=== PATIENT | female | born 1975 | race Caucasian/White ===

== ENCOUNTER → 2019-02-28 10:26 | Outpatient (BNVA) | payer MEDICAID, SELFPAY | PROVIDERS: Family Provider Family Medicine; PCP Family Medicine; Referring Provider Family Medicine; Visit Provider Internal Medicine Rheumatology | DX: M79.10 Myalgia, unspecified site (principal); M19.90 Unspecified osteoarthritis, unspecified site; Z11.59 Encounter for screening for other viral diseases | CPT/HCPCS: 36415; 82085; 86480; 99204 ==

== ENCOUNTER 2019-02-28 15:09 | Outpatient (CLI) | payer MEDICAID, SELFPAY ==
--- NOTE | 2019-02-28 15:26 | XR_ITS ---
WS: [id number] LEFT FOOT: 3 VIEW(S) TECHNIQUE: PA, oblique and lateral. HISTORY: inflammatory arthritis COMPARISON: None available. No acute fracture or dislocation. Normal tarsal/metatarsal alignment. No soft tissue abnormality or bone destruction. XR/XR foot LT min 3V* [id number] IMPRESSION: Normal LEFT foot.
--- NOTE | 2019-02-28 15:26 | XR_ITS ---
WS: [id number] LEFT HAND: 3 VIEW(S) TECHNIQUE: PA, oblique and lateral. HISTORY: inflammatory arthritis COMPARISON: None available. No acute fracture or dislocation. No soft tissue or bone abnormality. XR/XR hand LT min 3V* [id number] IMPRESSION: Normal LEFT hand.
--- NOTE | 2019-02-28 15:26 | XR_ITS ---
WS: [id number] RIGHT HAND: 3 VIEW(S) TECHNIQUE: PA, oblique and lateral. HISTORY: inflammatory arthritis COMPARISON: 07/20/2018 No acute fracture or dislocation. No soft tissue or bone abnormality. No erosions or soft tissue edema. XR/XR hand RT min 3V* [id number] IMPRESSION: Normal RIGHT hand.
--- NOTE | 2019-02-28 15:26 | XR_ITS ---
WS: [id number] CHEST 2 VIEWS HISTORY: inflammatory arthritis COMPARISON: None available. Lungs: Clear with no abnormality. No pleural effusion or pneumothorax. A few scattered benign-appeari ng calcifications from prior granulomatous disease. Cardiac size: Normal. Mediastinum/Aorta: Normal mediastinum. Bones: Normal. Small hiatal hernia. XR/XR chest 2V* [id number] IMPRESSION: Stable chest with no acute cardiopulmonary disease.
--- NOTE | 2019-02-28 15:26 | XR_ITS ---
WS: [id number] RIGHT FOOT: 3 VIEW(S) TECHNIQUE: PA, oblique and lateral. HISTORY: inflammatory arthritis COMPARISON: None available. No acute fracture or dislocation. Normal tarsal/metatarsal alignment. No soft tissue abnormality or bone destruction. XR/XR foot RT min 3V* [id number] IMPRESSION: Normal RIGHT foot.
== END 2019-02-28 15:10 | disposition home or self-care (01) ==
LOC: RADWPI 15:15
PROVIDERS: Family Provider Family Medicine; PCP Family Medicine; Referring Provider Family Medicine; Visit Provider Internal Medicine Rheumatology
DX: M19.90 Unspecified osteoarthritis, unspecified site (principal)
CPT/HCPCS: 71046; 73130; 73630; 82306; 82550; 85651; 86140; 86431; 86704; 86803; 87340

== ENCOUNTER → 2019-03-16 10:54 | Outpatient (BNVA) | payer MEDICAID, OTHER, SELFPAY | PROVIDERS: Family Provider Family Medicine; PCP Family Medicine; Visit Provider Internal Medicine Rheumatology | DX: M79.7 Fibromyalgia (principal); M54.2 Cervicalgia; M85.80 Other specified disorders of bone density and structure, unspecified site; R79.89 Other specified abnormal findings of blood chemistry; M25.541 Pain in joints of right hand; M25.542 Pain in joints of left hand | CPT/HCPCS: 99214 ==

== ENCOUNTER 2019-03-16 13:48 | Outpatient (CLI) | payer MEDICAID, SELFPAY ==
--- NOTE | 2019-03-16 13:53 | XR_ITS ---
WS: [id number] CERVICAL SPINE 3 VIEWS HISTORY: neck pain COMPARISON: 03/30/2013 Mild straightening of the normal cervical lordosis. Disc spaces and vertebral body heights are normal . Lateral masses are aligned odontoid is intact. Disc spaces and vertebral body heights are well-maintained. Soft tissues are normal. XR/XR cervical spine 3V* [id number] IMPRESSION: Mild straightening of the normal cervical lordosis. May be due to spasm or posi tioning.
== END 2019-03-16 13:49 | disposition home or self-care (01) ==
LOC: RADWPI 13:52
PROVIDERS: Family Provider Family Medicine; PCP Family Medicine; Visit Provider Internal Medicine Rheumatology
DX: M54.2 Cervicalgia (principal)
CPT/HCPCS: 72040

== ENCOUNTER 2019-03-27 11:19 | Outpatient (CLI) | payer MEDICAID, SELFPAY ==
--- NOTE | 2019-03-27 11:51 | ECG_ITS ---
NAME OF STUDY: TREADMILL STRESS ECHOCARDIOGRAM INDICATION: Chest Pain, PROCEDURE: At the baseline, the patient's blood pressure was 151/91 with a heart rate of 78. The baseline electrocardiogram showed normal sinus rhythm with some nonspecific T wave changes in the inferior leads. The patient exercised for 7 minutes and 15 seconds on a standard Sal protocol. Patient attained a maximum heart rate of 161 beats per minute( 90 % of the maximum predicted heart rate) with a blood pressure at the peak exercise of 190/86 mm Hg. The EKG at the peak exercise revealed [address] depressions in lead II, III and aVF. Patient did not have any chest pain or any significant cardiac arrhythmias with the exercise During the recovery phase, there were no new changes. The EKG changes reverted back to the baseline Blood pressure at the end of the recovery phase was 169/87 mm Hg with a heart rate of 107 per minute. CONCLUSION: 1. Normal EKG response to treadmill exercise may suggest inferior wall ischemia 2. No exercise-induced chest pain or cardiac arrhythmia 3. Fair exercise tolerance, attained a maximum of 10.2 METs Electronically Signed On 03-27-2019 15:09:25 TRIAL ATTORNEY by Jessica Castillo M.D. [email or web address]
[2019-03-27 11:57] VITALS: BMI 21.2
--- NOTE | 2019-03-27 12:15 | USCV_ITS ---
Julia Beckford Age: 43 Gender: F : 1975 Exam Date: 03/27/2019 12:07 Ordering Phys: Jessica Castillo MD ([email or web address]) Technologist: Gavin Hogan Exam Location: [facility] [place] Indication: CHEST PAIN Rhythm: PACs Patient History: HTN, SMOKER, FAMILY H/O CAD Cardiac Medications: BETA MARKOS Medications in past 24 hours: NONE Contrast: Stress Results Protocol: Sal Total dose(mL): Exercise Duration (min:sec): 7:15 METS: 10.2 Resting HR: 88 Resting BP: 151 / 91 Peak HR: 161 Peak BP: 190 / 91 Max Predicted HR: 178 90 % Max Predicted HR Target HR: 151 Double Product: 64052 Stress Summary: PATIENT HAD SOB WHILE ON THE TREADMILL THAT RESOLVED QUICKLY DURING RECOVERY. BP Response: NORMAL Reason for Termination: TARGET HR REACHED Cardiac Symptoms: SOB ECG Analysis Resting ECG: Please see separate report Stress ECG: Please see separate report Arrhythmia: Please see separate report MEASUREMENTS (Male/Female) Normal Values FINDINGS At the baseline, the echocardiogram will normal LV size and ejection fraction. Segmental wall motion analysis revealed mild hypokinesia of the basal septal segment. With peak exercise, there was good augmentation of all the segments with no exercise-induced wall motion abnormalities. CONCLUSIONS Normal echocardiographic response to treadmill exercise No significant coronary ischemia, based on the above 5 Dr Jessica Castillo MD [facility] (Electronically Signed) Final Date: 27 March 2019 21:12 S
[2019-03-27 12:34] VITALS: BP 169/87; PULSE 102
== END 2019-03-27 11:20 | disposition home or self-care (01) ==
LOC: CDL 11:23
PROVIDERS: Family Provider Family Medicine; PCP Family Medicine; Visit Provider Internal Medicine Cardiovascular Disease
DX: R07.89 Other chest pain (principal); I10 Essential (primary) hypertension; F17.210 Nicotine dependence, cigarettes, uncomplicated
CPT/HCPCS: 93017; 93350

== ENCOUNTER 2019-07-13 08:02 | Emergency (ER) | payer MEDICAID, SELFPAY ==
[2019-07-13 08:16] VITALS: BP 165/94; PULSE 73; RESP 18; TEMP 37; O2SAT 99; BMI 21.6
--- NOTE | 2019-07-13 08:21 | XR_ITS ---
WS: [id number] PORTABLE CHEST HISTORY: Headache. COMPARISON: 02/28/2019 Lungs are clear and well expanded. No pleural effusion or pneumothorax. Cardiac size: Normal. Mediastinum/Aorta: Normal mediastinum. No osseous abnormality seen. XR/XR chest 1V portable [id number] IMPRESSION: Unremarkable portable chest.
--- NOTE | 2019-07-13 08:21 | CT_ITS ---
WS: [id number] CT HEAD NONCONTRAST HISTORY: Sudden onset of RIGHT hand and facial numbness with headache. TECHNIQUE: Contiguous axial imaging performed through the brain in 2.5 mm imaging. Bone and soft tiss ue windows. Sagittal and coronal reformats reviewed. All CT scans at [facility] use at le ast one of these dose optimization techniques: automated exposure control; mA and/or kV adjustment pe r patient size (includes targeted exams where dose is matched to clinical indication); or iterative r econstruction. DLP: 755.81 mGy.cm COMPARISON: None available. No acute intracranial hemorrhage, midline shift or mass effect. No atrophy or prior infarcts or herniation. Ventricles: Normal size with no hydrocephalus. Paranasal sinuses: As visualized are clear. Mastoid air cells: Well pneumatized. Calvarium and scalp: Skull is intact with no soft tissue edema or swelling. CT/CT head wo con* [id number] IMPRESSION: Negative head CT.
--- NOTE | 2019-07-13 08:27 | W.ED.NEUROSD ---
HPI - Neuro Symptoms/Deficit General: Chief Complaint: Neuro Symptoms/Deficit Stated Complaint: numbness arms and face Time Seen by Provider: 07/13/19 08:22 Source: patient Mode of arrival: ambulatory Limitations: no limitations History of Present Illness: HPI Narrative: 44-year-old female who states she woke up this morning at 3 AM with paresthesias to right side of face and arm. She states that she has had history of neck problems in the past. She states that her blood pressure was a little high this morning as well. She states that her symptoms have since resolved but she is worried about having a stroke. She denies any symptoms currently and denies any neck pain or headache. She denies any chest pain with the event. Associated symptoms: Deny chest pain, nausea or vomiting Review of Systems Const: Denies: fever(s), chills, body aches or change in appetite Eyes: Denies: blurry vision or eye discomfort ENMT: Denies: throat pain or dental pain Card: Denies: chest pain Resp: Denies: dyspnea GI: Denies: abdominal pain, nausea, vomiting or diarrhea : Denies: dysuria Musc: Denies: neck pain or back pain Skin/Breast: Denies: rash Neuro: Reports: numbness in extremities Psych: Denies: depression Buck/Lymph: Denies: easy bruising All/Imm: Denies: urticaria PFSH ED PFSH: Medical History Abnormal EKG The EKG from 01/31/1990 revealed a sinus rhythm with diffuse nonspecific ST changes, more so in the inferolateral leads. Possible old septal IN Arthralgia of both hands Arthralgia of cervical spine Atypical chest pain Encounter for screening for other viral diseases Fibromyalgia Hypertension Inflammatory arthritis Low vitamin D level Myalgia Surgical History S/P eye surgery Family History Other CAD (coronary artery disease) Clotting disorder Diabetes Family history of premature coronary artery disease Hyperlipidemia Hypertension Stroke Denies family history of Anesthesia complication Bleeding disorder Social History Smoking and tobacco status: current every day smoker Alcohol intake: never History of recent travel: No Physical Exam Const: COMMON NORMALS: no acute distress, patient oriented x3 and healthy appearing HENMT: COMMON NORMALS: normocephalic and atraumatic HEAD & SCALP: normocephalic and atraumatic Eye: COMMON NORMALS: Equal, round and reactive pupils present and EOMs intact bilaterally PUPIL: Yes Equal, round and reactive pupils present Neck/C-Spine: COMMON NORMALS: full ROM and supple Chest: COMMONS NORMALS: normal inspection of the chest and normal palpation of entire chest wall Resp: COMMON NORMALS: normal respiratory effort, No retractions, No use of accessory muscles and clear to auscultation bilaterally AUSCULTATION: clear to auscultation bilaterally Cardio: COMMON NORMALS: regular rate, regular rhythm and No murmurs present (Cardio) RATE: regular rate RHYTHM: regular rhythm GI: COMMON NORMALS: Normal to inspection, nondistended, normoactive bowel sounds present, Soft to palpation, non-tender and no masses PALPATION: Yes Soft to palpation Extremity: COMMON NORMALS: normal to inspection and full ROM Neuro: COMMON NORMALS: patient oriented x3, moves all extremities and no focal motor deficits Psych: COMMON NORMALS: mental status grossly normal, Normal thought process present and cooperative THOUGHT PROCESS: Normal thought process present Skin: COMMON NORMALS: no rashes or lesions noted and no wounds GENERAL SKIN EXAM: no rashes or lesions noted Course Vital Signs: Vital signs: Vital Signs Temperature 98.6 F 07/13/19 08:16 Pulse Rate 87 07/13/19 09:46 Respiratory Rate 16 07/13/19 09:46 Blood Pressure 130/87 07/13/19 09:46 Pulse Oximetry 100 07/13/19 09:46 MDM - Neuro Symptoms/Deficit MDM Narrative: Medical decision making narrative: Patient presents here with paresthesias that since resolved. Patient has no signs of his stroke here and CT head is normal. I informed her she needs to follow-up with her primary care doctor in 3 to 5 days return to the ER if worsening. Neuro exam here is benign. Lab Data: Labs: Lab Results 07/13/19 07/13/19 07/13/19 Range/Units 08:54 08:54 08:54 WBC 8.7 (4.0-10.0) 10^3/ uL RBC 3.87 L (4.1-5.3) 10^6/u L Hgb 12.3 (11.5-15.3) g/dL Hct 37.5 (37.0-47.0) % MCV 96.9 (81-99) fL MCH 31.8 (28.0-34.0) pg MCHC 32.8 (30.0-36.0) g/dL RDW 11.6 L (12.1-15.1) % Plt Count 248 (130-400) 10^3/c mm MPV 9.6 (7.4-10.4) fL Neut % (Auto) 54.7 % Lymph % (Auto) 36.1 % Mingo % (Auto) 5.4 % Eos % (Auto) 2.9 % Baso % (Auto) 0.6 % Neut # (Auto) 4.7 (1.8-7.7) 10^3/u L Lymph # (Auto) 3.1 (0.8-4.8) 10^3/u L Mingo # (Auto) 0.5 (0.2-0.9) 10^3/u L Eos # (Auto) 0.3 (0.0-0.8) 10^3/u L Baso # (Auto) 0.1 (0.0-0.1) 10^3/u L Nucleated RBC % (a uto) 0 % Nucleated RBCs # 0.0 /100WBC Sodium 143 (136-145) mmol/L Potassium 4.1 (3.5-5.1) mmol/L Chloride 103 (98-107) mmol/L Carbon Dioxide 29 (22-29) mmol/L Anion Gap 15.1 (5-19) BUN 8 (6-20) mg/dL Creatinine 0.8 (0.5-0.9) mg/dL GFR Calculation 78.3 L (90-130) mL/min Glucose 98 (65-115) mg/dL Calculated Osmolal ity 292 (285-295) mOsm/k g Calcium 9.6 (8.5-10.5) mg/dL Total Bilirubin 0.2 (0.15-1.2) mg/dL AST 16 (0-32) U/L ALT 10 (0-33) U/L Alkaline Phosphata se 63 (35-105) IU/L Troponin T Baselin e 6 (0-10) ng/mL Total Protein 7.1 (6.6-8.7) g/dL Albumin 5.0 (3.5-5.2) g/dL Globulin 2.1 (1.3-4.6) g/dL Imaging Data^: CXR: Radiologist's impression: Reason: shea [address] [place] [address] XRay Report Signed Patient: Julia Beckford Unit #: [id number] : 1975 Age/Sex: 44 / F ADM Date: 07/13/19 Loc: ER Room/Bed: Attending Dr: Ordering Provider/Ordering MD: Liza Silveira MD Date of Service: 07/13/19 Procedure(s): XR chest 1V portable [id number] Accession Number(s): [id number] Report Number: [id number] WS: [id number] PORTABLE CHEST HISTORY: Headache. COMPARISON: 02/28/2019 Lungs are clear and well expanded. No pleural effusion or pneumothorax. Cardiac size: Normal. Mediastinum/Aorta: Normal mediastinum. No osseous abnormality seen. XR/XR chest 1V portable [id number] IMPRESSION: Unremarkable portable chest. CT Head: Attestation: I personally reviewed and interpreted this imaging study as follows: Radiologist's impression: [address] [place] [address] CT Scan Report Signed Patient: Julia Beckford Unit #: [id number] : 1975 Age/Sex: 44 / F ADM Date: 07/13/19 Loc: ER Room/Bed: Attending Dr: Ordering Provider/Ordering MD: Liza Silveira MD Date of Service: 07/13/19 Procedure(s): CT head wo con* [id number] Accession Number(s): [id number] Report Number: [id number] WS: [id number] CT HEAD NONCONTRAST HISTORY: Sudden onset of RIGHT hand and facial numbness with headache. TECHNIQUE: Contiguous axial imaging performed through the brain in 2.5 mm imaging. Bone and soft tissue windows. Sagittal and coronal reformats reviewed. All CT scans at [facility] use at least one of these dose optimization techniques: automated exposure control; mA and/or kV adjustment per patient size (includes targeted exams where dose is matched to clinical indication); or iterative reconstruction. DLP: 755.81 mGy.cm COMPARISON: None available. No acute intracranial hemorrhage, midline shift or mass effect. No atrophy or prior infarcts or herniation. Ventricles: Normal size with no hydrocephalus. Paranasal sinuses: As visualized are clear. Mastoid air cells: Well pneumatized. Calvarium and scalp: Skull is intact with no soft tissue edema or swelling. CT/CT head wo con* [id number] IMPRESSION: Negative head CT. Discharge Plan Discharge Patient Disposition: Home, Self-Care Clinical Impression: Paresthesia Condition: Stable Prescriptions: No Action carvedilol 3.125 mg tablet 3.125 mg PO BID 30 Days Qty: 60 RF: 3 alprazolam 2 mg tablet 2 mg PO QID PRN (Reason: anxiety) RF: 0 hydrocodone-acetaminophen 10-325 mg tablet 1 tab PO Q4H PRN (Reason: Pain) RF: 0 duloxetine 60 mg capsule, delayed rel sprinkle 60 mg PO DAILY RF: 0 lidocaine 5 % adhesive patch,medicated 1 patch TOPICAL Q24H PRN (Reason: Pain) RF: 0 celecoxib [Celebrex] 200 mg capsule 200 mg PO BID 30 Days Qty: 60 RF: 1 cholecalciferol (vitamin D3) 2,000 unit tablet 2,000 unit PO .daily 90 Days Qty: 90 RF: 1 tizanidine 4 mg Capsule 4 mg PO TID PRN (Reason: Muscle Pain) RF: 0 Discharge Orders: Discharge Order (Routine); Ordered 07/13/19 Ordered By: Liza Silveira Referrals: Eleanor Lewis DO [Primary Care Provider] - 1-3 days Discharge Diet: Advance as tolerated Discharge Activity: Resume usual activity Patient Instructions: Paresthesia (ED) Discharge Date/Time: 07/13/19 09:47 Coding Level of Care Code ED Raisin Washer for Chg Fwd Exam Comprehensive
[2019-07-13 08:30] VITALS: BP 149/104; PULSE 64; RESP 18; O2SAT 99
[2019-07-13 09:02] LABS: Basophils # 0.1 10^3/uL (0.0-0.1); Basophils % 0.6 %; Eosinophils # 0.3 10^3/uL (0.0-0.8); Eosinophils % 2.9 %; Hematocrit 37.5 % (37.0-47.0); Hemoglobin 12.3 g/dL (11.5-15.3); Lymphocytes # 3.1 10^3/uL (0.8-4.8); Lymphocytes % 36.1 %; Mean Corpuscular HGB Conc 32.8 g/dL (30.0-36.0); Mean Corpuscular Hemoglobin 31.8 pg (28.0-34.0); Mean Corpuscular Volume 96.9 fL (81-99); Mean Platelet Volume 9.6 fL (7.4-10.4); Monocytes # 0.5 10^3/uL (0.2-0.9); Monocytes % 5.4 %; Neutrophils # 4.7 10^3/uL (1.8-7.7); Neutrophils % 54.7 %; Nucleated Red Blood Cells % 0 %; Platelet Count 248 10^3/cmm (130-400); Red Blood Count 3.87 10^6/uL (4.1-5.3); Red Cell Distribution Width 11.6 % (12.1-15.1); White Blood Count 8.7 10^3/uL (4.0-10.0)
[2019-07-13 09:23] LABS: Troponin(5th) Baseline 6 ng/mL (0-10)
[2019-07-13 09:24] LABS: Alanine Aminotransferase 10 U/L (0-33); Alkaline Phosphatase 63 IU/L (35-105); Anion Gap 15.1 (5-19); Aspartate Amino Transferase 16 U/L (0-32); Carbon Dioxide 29 mmol/L (22-29); Chloride 103 mmol/L (98-107); Globulin 2.1 g/dL (1.3-4.6); Glomerular Filtration Rate 78.3 mL/min (90-130); Glucose 98 mg/dL (65-115); Potassium 4.1 mmol/L (3.5-5.1); Sodium 143 mmol/L (136-145); Total Bilirubin 0.2 mg/dL (0.15-1.2); Total Protein 7.1 g/dL (6.6-8.7)
[2019-07-13 09:36] LABS: Blood Urea Nitrogen 8 mg/dL (6-20); Calcium 9.6 mg/dL (8.5-10.5); Osmolality Calculated 292 mOsm/kg (285-295)
[2019-07-13 09:46] VITALS: BP 130/87; PULSE 87; RESP 16; O2SAT 100
== END 2019-07-13 09:47 | disposition home or self-care (01) ==
PROVIDERS: Emergency Provider Emergency Medicine; PCP Family Medicine
DX: R20.2 Paresthesia of skin (principal); I10 Essential (primary) hypertension; F17.210 Nicotine dependence, cigarettes, uncomplicated
CPT/HCPCS: 12345; 36415; 70450; 71045; 80053; 84484; 85025; 96360; 99281; 99283

== ENCOUNTER 2019-11-06 15:00 | Outpatient (CLI) | payer MEDICAID, SELFPAY ==
--- NOTE | 2019-11-06 15:00 | USCV_ITS ---
Analy Julia Age: 44 Gender: F : 1975 Exam Date: 11/06/2019 15:16 Ordering Phys: Jessica Castillo MD ([email or web address]) Technologist: Carine Addison [place] [facility] [place]: HTN Risk Factors: Previous Vascular Surgery: Right Brachial BP: / Left Brachial BP: / Right Left Velocity (cm/s) Spectral Plaque Velocity (cm/s) Spectral Plaque Syst/Diast Broadening Syst/Diast Broadening 87.10/ 22.10 Prox CCA 45.30 / 12.60 79.40/ 20.90 Mid CCA 40.10 / 14.30 56.20/ 26.50 Distal CCA 46.40 / 17.80 58.40/ 33.10 Prox ICA 53.60 / 28.40 81.60/ 40.80 Mid ICA 49.00 / 26.10 62.50/ 28.80 Distal ICA 60.50 / 33.00 91.50 ECA 94.20 0.94 ICA/CCA 1.30 Antegrade Vertebral Antegrade 30.90/ 12.00 cm/s 38.20/ 14.70 cm/s Tri Subclavian Tri 61.90 113.6 0 FINDINGS Intimal thickening and minimal plaques at the bifurcations bilaterally. Mild degree in the common carotid arteries bilaterally. Antegrade flow in the vertebral arteries bilaterally. Normal Doppler flow velocities in the external carotid arteries bilaterally CONCLUSIONS Intimal thickening and minimal plaques at the bifurcations bilaterally. Intimal thickening in the common carotid arteries bilaterally No significant stenosis, based on the above findings Dr Jessica Castillo MD [facility] (Electronically Signed) Final Date: 06 November 2019 17:59 S
--- NOTE | 2020-02-22 | USCV_ITS ---
Analy Julia Age: 44 Gender: F : 1975 Exam Date: 02/22/2020 15:13 Ordering Phys: Jessica Castillo MD ([email or web address]) Technologist: Roberta Worthy Exam Location: [facility] – [place] Indication: Additional images of left side, bruit per Dr. Castillo Risk Factors: Previous Vascular Surgery: Right Brachial BP: / Left Brachial BP: / Right Left Velocity (cm/s) Spectral Plaque Velocity (cm/s) Spectral Plaque Syst/Diast Broadening Syst/Diast Broadening / Prox CCA 109.90/ 32.10 / Mid CCA 78.60 / 29.90 / Distal CCA 68.80 / 28.30 / Prox ICA 74.60 / 25.60 / Mid ICA 78.10 / 36.20 / Distal ICA 135.80/ 58.00 ECA 87.10 ICA/CCA 1.24 Vertebral Antegrade / cm/s 79.30/ 31.70 cm/s Subclavian Tri 255.4 0 FINDINGS Elevated velocity in the distal ICA Normal intimal thickening in the common carotid artery on the left side. Elevated velocity in the left subclavian artery CONCLUSIONS 1. Elevated velocity in the distal left ICA, may suggest fibromuscular dysplasia 2. Elevated velocity in the left subclavian artery may suggest hemodynamically significant stenosis. Consider CTA, to better evaluate the proximal and distal segments of the aortic arch vessels Dr Jessica Castillo MD [facility] (Electronically Signed) Final Date: 22 February 2020 19:06 S
== END 2019-11-06 15:01 | disposition home or self-care (01) ==
LOC: RAD 15:26
PROVIDERS: PCP Family Medicine; Visit Provider Internal Medicine Cardiovascular Disease
DX: I65.23 Occlusion and stenosis of bilateral carotid arteries (principal); I10 Essential (primary) hypertension
CPT/HCPCS: 93880

== ENCOUNTER 2020-01-10 12:59 | Outpatient (CLI) | payer MEDICAID, SELFPAY ==
--- NOTE | 2020-01-10 13:20 | CT_ITS ---
WS: [id number] CT ABDOMEN PELVIS TECHNIQUE: Contrast-enhanced CT of the abdomen and pelvis with coronal and sagittal reformatted image s. CLINICAL INFORMATION: GENERALIZED ABDOMINAL PAIN, GRANULOMATOUS DISEASE COMPARISON: None. DLP: 833.[address] scans at [facility] use at least one of these dose optimization techniques: automat ed exposure control; mA and/or kV adjustment per patient size (includes targeted exams where dose is matched to clinical indication); or iterative reconstruction. FINDINGS: Diffuse fatty infiltration of the liver. Normal portal vein and splenic vein. Normal gallbladder. Nor mal spleen. Adrenal glands are normal. Normal renal parenchymal enhancement. No hydronephrosis. Lung bases are well aerated. Subsegmental atelectasis left lower lobe. Normal pancreas. Normal spleen. Nor mal caliber abdominal aorta. Urine distended bladder. Tiny fat-containing umbilical hernia. No evidence of small large bowel obstruction. No periaortic or retroperitoneal lymphadenopathy. No inguinal lymphadenopathy. No free fluid in the pelvis. Normal te mbar spine. CT/CT abdomen pelvis w con* [id number] IMPRESSION: 1. No acute findings in the abdomen or pelvis. 2. Mild diffuse fatty infiltration of the liver. 3. Normal renal parenchymal enhancement. No hydronephrosis. 4. No evidence of small or large bowel obstruction. Normal sigmoid colon. 5. No adenopathy in the abdomen or pelvis. 6. No other significant findings.
[2020-01-10] MEDS: iohexol 300 mg/mL 100 mL Btl IV (15:01)
== END 2020-01-10 13:00 | disposition home or self-care (01) ==
LOC: RADWPI 13:04
PROVIDERS: PCP Family Medicine; Visit Provider Family Medicine
DX: R10.84 Generalized abdominal pain (principal); D71 Functional disorders of polymorphonuclear neutrophils; K76.89 Other specified diseases of liver
CPT/HCPCS: 74177; Q9967

== ENCOUNTER 2020-02-07 13:07 | Outpatient (CLI) | payer MEDICAID, SELFPAY ==
--- NOTE | 2020-02-07 13:10 | CT_ITS ---
WS: [id number] CT CHEST TECHNIQUE: Contrast enhanced CT of the chest with coronal and sagittal reformatted images. CLINICAL INFORMATION: GRANULOMATOUS DISEASE COMPARISON: None. DLP: 569.[address] scans at [facility] use at least one of these dose optimization techniques: automat ed exposure control; mA and/or kV adjustment per patient size (includes targeted exams where dose is matched to clinical indication); or iterative reconstruction. FINDINGS: Both lungs are well aerated. No acute pulmonary infiltrates. No focal consolidation or pleural fluid. No mediastinal or hilar lymphadenopathy. No axillary lymphadenopathy. Normal thyroid. Normal caliber thoracic aorta. Proximal main pulmonary arteries are normal. Adrenal glands are normal. Normal GE junction. Normal thoracic spine. CT/CT chest w con* [id number] IMPRESSION: 1. No acute pulmonary infiltrates. No focal consolidation or pleural fluid. 2. No mediastinal or hilar lymphadenopathy. No axillary lymphadenopathy. 3. No other significant findings.
[2020-02-07] MEDS: iohexol 300 mg/mL 100 mL Btl IV (13:26)
== END 2020-02-07 13:08 | disposition home or self-care (01) ==
LOC: RADWPI 13:09
PROVIDERS: PCP Family Medicine; Visit Provider Family Medicine
DX: D71 Functional disorders of polymorphonuclear neutrophils (principal)
CPT/HCPCS: 71260; Q9967

== ENCOUNTER 2020-07-08 11:10 | Outpatient (CLI) | payer MEDICAID, SELFPAY ==
[2020-07-08 12:07] LABS: Basophils # 0.1 10^3/uL (0.0-0.1); Basophils % 0.7 %; Eosinophils # 0.1 10^3/uL (0.0-0.8); Eosinophils % 1.5 %; Hematocrit 36.8 % (37.0-47.0); Hemoglobin 12.1 g/dL (11.5-15.3); Lymphocytes # 3.1 10^3/uL (0.8-4.8); Lymphocytes % 40.9 %; Mean Corpuscular HGB Conc 32.9 g/dL (30.0-36.0); Mean Corpuscular Hemoglobin 31.4 pg (28.0-34.0); Mean Corpuscular Volume 95.6 fL (81-99); Mean Platelet Volume 9.6 fL (7.4-10.4); Monocytes # 0.4 10^3/uL (0.2-0.9); Monocytes % 5.1 %; Neutrophils # 3.87 10^3/uL (1.8-7.7); Neutrophils % 51.5 %; Nucleated Red Blood Cells % 0 %; Platelet Count 202 10^3/cmm (130-400); Red Blood Count 3.85 10^6/uL (4.1-5.3); Red Cell Distribution Width 11.2 % (12.1-15.1); White Blood Count 7.5 10^3/uL (4.0-10.0)
[2020-07-08 12:19] LABS: C Reactive Protein 0.7 mg/L (0.0-4.9)
[2020-07-08 12:48] LABS: Erythrocyte Sedimentation Rate 20 mm/hr (0-15)
[2020-07-09 11:37] LABS: Alpha 1 Antitrypsin 162 mg/dL (83-199)
[2020-07-09 12:13] LABS: Centromere B Antibody <1.0 NEG AI (<1.0 NEG)
[2020-07-10 13:07] LABS: Anti-Double Strand DNA AB 1 IU/mL; SS A Ro Sjogrens Antibody <1.0 NEG AI (<1.0 NEG); SS-B/LA IGG <1.0 NEG AI (<1.0 NEG); Sm/RNP Antibody <1.0 NEG AI (<1.0 NEG); Smith Antibody <1.0 NEG AI (<1.0 NEG)
[2020-07-10 15:23] LABS: Cyclic Citrullinated Peptide <16 UNITS
[2020-07-10 17:38] LABS: Alternaria Alternata (M6) Ige <0.10 kU/L; Alternaria Class 0; Bermuda Class 0; Bermuda Grass (G2) Ige <0.10 kU/L; Cat Dander (E1) Ige 0.38 kU/L; Cat Dander Class 1; Common Ragweed (Short) (W1) Ig <0.10 kU/L; D. Farinae Class 0; Dermatophagoides Class 0; Dermatophagoides Farinae (D2) <0.10 kU/L; Dermatophagoides Pteronyssinus <0.10 kU/L; Dog Dander (E5) Ige 0.86 kU/L; Dog Dander Class 2; Elm (T8) Ige <0.10 kU/L; Elm Class 0; English Plantain (W9) Ige <0.10 kU/L; English Plantain Class 0; House Dust (Greer) (H1) Ige 0.12 kU/L; House Dust Class 0/1; Immunoglobulin E 62 kU/L (<OR=114); Johnson Grass (G10) Ige <0.10 kU/L; Johnson Grass Cl 0; June Grass Class 0; June Grass(Kentucky Blue) (G8) <0.10 kU/L; Lamb'S Quarters (Goose Foot) <0.10 kU/L; Lamb'S Quarters Class 0; Maple (Box Elder) (T1) Ige <0.10 kU/L; Maple Class 0; Meadow Fescue (G4) Ige <0.10 kU/L; Meadow Fescue Class 0; Mucor Racemosus Class 0; Oak (T7) Ige <0.10 kU/L; Oak Class 0; Orchard Grass (Cocksfoot) (G3) <0.10 kU/L; Penicillium Class 0; Penicillium Notatum (M1) Ige <0.10 kU/L; Perennial Rye Grass (G5) Ige <0.10 kU/L; Perennial Rye Grass Class 0; Ragweeed Class 0; Rough Marsh Elder (W16) Ige <0.10 kU/L; Rough Marsh Elder Class 0; Sweet Vernal Class 0; Sweet Vernal Grass (G1) Ige <0.10 kU/L; Timothy Grass (G6) Ige <0.10 kU/L; Timothy Grass Class 0
[2020-07-11 18:03] LABS: Aspergillus Fumigatus, Igg Ab, 8.2 mg/L (<=102)
== END 2020-07-08 11:11 | disposition home or self-care (01) ==
PROVIDERS: PCP Family Medicine; Visit Provider Internal Medicine Pulmonary Disease
DX: J45.909 Unspecified asthma, uncomplicated (principal); M19.90 Unspecified osteoarthritis, unspecified site; I10 Essential (primary) hypertension; Z79.899 Other long term (current) drug therapy
CPT/HCPCS: 36415; 82103; 82785; 85025; 85651; 86003; 86140; 86225; 86235; 86431

== ENCOUNTER 2020-10-10 14:53 | Emergency (ER) | payer MEDICAID, SELFPAY ==
[2020-10-10 15:26] VITALS: BP 146/90; PULSE 74; RESP 16; TEMP 37.1; O2SAT 98; BMI 21.2
== END 2020-10-10 16:38 ==
LOC: ER 14:58
PROVIDERS: Emergency Provider Physician Assistant; PCP Family Medicine
DX: Z53.21 Procedure and treatment not carried out due to patient leaving prior to being seen by health care provider (principal)
CPT/HCPCS: 99281

== ENCOUNTER 2020-10-28 10:46 | Outpatient (CLI) | payer MEDICAID, SELFPAY ==
[2020-10-28 11:13] LABS: Basophils # 0.1 10^3/uL (0.0-0.1); Basophils % 0.6 %; Eosinophils # 0.2 10^3/uL (0.0-0.8); Eosinophils % 1.9 %; Hematocrit 38.5 % (37.0-47.0); Hemoglobin 12.6 g/dL (11.5-15.3); Lymphocytes # 3.2 10^3/uL (0.8-4.8); Lymphocytes % 40.3 %; Mean Corpuscular HGB Conc 32.7 g/dL (30.0-36.0); Mean Corpuscular Hemoglobin 31.7 pg (28.0-34.0); Mean Platelet Volume 9.6 fL (7.4-10.4); Monocytes # 0.5 10^3/uL (0.2-0.9); Monocytes % 5.7 %; Neutrophils # 4.08 10^3/uL (1.8-7.7); Neutrophils % 51.4 %; Nucleated Red Blood Cells % 0 %; Platelet Count 229 10^3/cmm (130-400); Red Blood Count 3.97 10^6/uL (4.1-5.3); Red Cell Distribution Width 11.1 % (12.1-15.1); White Blood Count 7.9 10^3/uL (4.0-10.0)
[2020-10-28 11:45] LABS: Alanine Aminotransferase 17 U/L (0-33); Albumin Level 4.5 g/dL (3.5-5.2); Alkaline Phosphatase 80 IU/L (35-105); Anion Gap 13.4 (5-19); Aspartate Amino Transferase 22 U/L (0-32); Blood Urea Nitrogen 6 mg/dL (6-20); Calcium 9.1 mg/dL (8.5-10.5); Carbon Dioxide 28 mmol/L (22-29); Chloride 101 mmol/L (98-107); Globulin 2.8 g/dL (1.3-4.6); Glomerular Filtration Rate 90.9 mL/min (90-130); Glucose 85 mg/dL (65-115); Osmolality Calculated 283 mOsm/kg (285-295); Potassium 4.4 mmol/L (3.5-5.1); Sodium 138 mmol/L (136-145); Total Bilirubin 0.3 mg/dL (0.15-1.2); Total Protein 7.3 g/dL (6.6-8.7)
[2020-10-28 11:56] LABS: Protein Urine Neg (Negative); Specific Gravity, Urine 1.005 (1.005-1.030); Urine Appearance SL Hazy (CLEAR); Urine Color Yellow (Yellow); pH Urine 7 (5-7)
[2020-10-28 11:57] LABS: Add Urine Culture? No; Amorphous Sediment Urine 1+ /hpf; Bacteria Urine TRACE /hpf; Bilirubin Urine Neg (Negative); Blood Urine Neg (Negative); Glucose Urine UA Norm (Normal); Ketones Urine Negative (Negative); Leukocyte Esterase Urine Negative (Negative); Nitrate Urine Negative (Negative); Urobilinogen Urine Norm (Negative)
[2020-10-28 12:39] LABS: Erythrocyte Sedimentation Rate 24 mm/hr (0-15)
== END 2020-10-28 10:47 | disposition home or self-care (01) ==
LOC: LAB 10:48
PROVIDERS: PCP Family Medicine; Visit Provider Specialist
DX: H93.19 Tinnitus, unspecified ear (principal); R42 Dizziness and giddiness
CPT/HCPCS: 36415; 80053; 81001; 84443; 85025; 85651

== ENCOUNTER 2020-11-19 11:20 | Outpatient (CLI) | payer MEDICAID, SELFPAY ==
--- NOTE | 2020-11-19 11:23 | MR_ITS ---
WS: [id number] MRI BRAIN WITH HIGH-RESOLUTION IMAGING THROUGH THE INTERNAL AUDITORY CANALS WITHOUT AND WITH CONTRAST HISTORY: TINNITUS UNSPEC EAR;DIZZINESS AND GIDDINESS COMPARISON: None available. TECHNIQUE: Multiplanar, multisequence imaging is performed through the brain. Additional 3 mm imaging performed in multiple planes through the internal auditory canal. Postcontrast imaging with 12 ml's of MultiHance. No acute intracranial hemorrhage, midline shift, edema or mass effect. No prior infarct or signal abnormalities. No significant atrophy. Ventricles and extra-axial spaces are normal. No inferior displacement of cerebellar tonsils. Clivus and pituitary gland are normal. Internal and external auditory canals: Unremarkable. Cranial nerves VII and VIII complexes: Unremarkable. No enhancement or mass. Cerebellopontine angles: Normal. Paranasal sinuses: Very mild mucoperiosteal thickening in the RIGHT frontal ethmoid recess. No air-fl uid levels. Mastoid air cells: Normal. Calvarium and scalp: Normal. Visualized alutiiq of Bee and dural venous sinuses demonstrate no abnormality. MR/MR iac's wo/w con* [id number] IMPRESSION: Normal MRI IACs.
[2020-11-19] MEDS: gadobenate dimeglumine 20 mL vial IV (12:44)
== END 2020-11-19 11:21 | disposition home or self-care (01) ==
LOC: RADSHAW 11:21
PROVIDERS: PCP Family Medicine; Visit Provider Specialist
DX: H93.19 Tinnitus, unspecified ear (principal); R42 Dizziness and giddiness
CPT/HCPCS: 70553; A9577

== ENCOUNTER 2021-01-21 10:34 | Outpatient (CLI) | payer MEDICAID, SELFPAY ==
--- NOTE | 2021-01-21 10:42 | XR_ITS ---
WS: [id number] LUMBAR SPINE TECHNIQUE: 3 views of the lumbar spine CLINICAL INFORMATION: CHRONIC MID LOW BACK PAIN, NECK PAIN COMPARISON: None. FINDINGS: Five [id number] lumbar vertebral bodies. Disc space heights are well preserved. No compression f ractures. No No spondylolisthesis. Visualized sacroiliac joints are normal. Mild facet arthropathy L5 -S1. Normal visualized soft tissues. Partially visualized bowel gas pattern is normal. XR/XR lumbar spine 2-3V* [id number] IMPRESSION: Normal lumbar spine.
--- NOTE | 2021-01-21 10:42 | XR_ITS ---
WS: [id number] THORACIC SPINE TECHNIQUE: 3 views of the thoracic spine CLINICAL INFORMATION: CHRONIC MID LOW BACK PAIN, NECK PAIN COMPARISON: None. FINDINGS: Normal thoracic alignment. Both lungs are well aerated. Mild spondylitic changes thoracic spine. No a cute compression fractures. XR/XR thoracic spine 3V* [id number] IMPRESSION: No acute thoracic spine findings.
--- NOTE | 2021-01-21 10:42 | XR_ITS ---
WS: [id number] CERVICAL SPINE TECHNIQUE: 3 views of the cervical spine CLINICAL INFORMATION: CHRONIC MID LOW BACK PAIN, NECK PAIN COMPARISON: March 16, 2019 FINDINGS: Straightening of the normal cervical lordosis. Normal C1 articulation. Mild cervical curve. Normal de ns. Normal lateral masses. Alignment is unchanged since 2019. XR/XR cervical spine 3V* [id number] IMPRESSION: Normal cervical spine
== END 2021-01-21 10:35 | disposition home or self-care (01) ==
PROVIDERS: PCP Family Medicine; Visit Provider Family Medicine
DX: M54.6 Pain in thoracic spine (principal); G89.29 Other chronic pain; M54.41 Lumbago with sciatica, right side; M54.42 Lumbago with sciatica, left side
CPT/HCPCS: 72040; 72072; 72100

== ENCOUNTER → 2021-03-27 11:09 | Outpatient (BNVA) | payer MEDICAID, SELFPAY | PROVIDERS: PCP Family Medicine; Visit Provider Internal Medicine Rheumatology | DX: M06.9 Rheumatoid arthritis, unspecified (principal); M79.7 Fibromyalgia; E55.9 Vitamin D deficiency, unspecified; R23.1 Pallor | CPT/HCPCS: 99214 ==

== ENCOUNTER 2021-07-16 15:35 | Outpatient (CLI) | payer MEDICAID, SELFPAY ==
--- NOTE | 2021-07-16 16:24 | XRR_ITS ---
PROCEDURE INFORMATION: Exam: XR Left Knee Exam date and time: 07/16/2021 4:26 PM Age: 46 years old Clinical indication: Pain; Knee; Bilateral; Additional info: Chronic pain of both knees TECHNIQUE: Imaging protocol: XR Left knee. Views: 3 views. COMPARISON: CR XR foot LT min 3V* [id number] 02/28/2019 3:31 PM FINDINGS: Bones/joints: Normal. Soft tissues: Normal. XR/XR knee LT 3V* [id number] IMPRESSION: No acute findings.
--- NOTE | 2021-07-16 16:24 | XRR_ITS ---
PROCEDURE INFORMATION: Exam: XR Right Knee Exam date and time: 07/16/2021 4:26 PM Age: 46 years old Clinical indication: Pain; Knee; Bilateral; Additional info: Chronic pain of both knees TECHNIQUE: Imaging protocol: XR Right knee. Views: 3 views. COMPARISON: CR XR foot RT min 3V* [id number] 02/28/2019 3:31 PM FINDINGS: Bones/joints: Normal. Soft tissues: Normal. XR/XR knee RT 3V* [id number] IMPRESSION: No acute findings.
--- NOTE | 2021-07-16 16:25 | XRR_ITS ---
PROCEDURE INFORMATION: Exam: XR Right Ankle Exam date and time: 07/16/2021 4:26 PM Age: 46 years old Clinical indication: Pain; Ankle; Bilateral; Additional info: Chronic pain of both ankles TECHNIQUE: Imaging protocol: XR Right ankle. Views: 3 or more views. COMPARISON: CR XR foot RT min 3V* [id number] 02/28/2019 3:31 PM FINDINGS: Bones/joints: Normal. Soft tissues: Normal. XR/XR ankle RT min 3V* [id number] IMPRESSION: No acute findings.
--- NOTE | 2021-07-16 16:25 | XRR_ITS ---
PROCEDURE INFORMATION: Exam: XR Left Ankle Exam date and time: 07/16/2021 4:26 PM Age: 46 years old Clinical indication: Pain; Ankle; Bilateral; Additional info: Chronic pain of both ankles TECHNIQUE: Imaging protocol: XR Left ankle. Views: 3 or more views. COMPARISON: CR XR foot LT min 3V* [id number] 02/28/2019 3:31 PM FINDINGS: Bones/joints: Small calcified heel spur. Soft tissues: Normal. XR/XR ankle LT min 3V* [id number] IMPRESSION: Small calcified heel spur.
[2021-07-16 17:21] LABS: Erythrocyte Sedimentation Rate 8 mm/hr (0-15)
== END 2021-07-16 15:36 | disposition home or self-care (01) ==
LOC: LAB 15:40
PROVIDERS: PCP Family Medicine; Visit Provider Internal Medicine Rheumatology
DX: M19.90 Unspecified osteoarthritis, unspecified site (principal); M79.7 Fibromyalgia
CPT/HCPCS: 73562; 73610; 85651; 86140

== ENCOUNTER → 2021-09-18 13:42 | Outpatient (BNVA) | payer MEDICAID, SELFPAY | PROVIDERS: PCP Family Medicine; Visit Provider Internal Medicine Pulmonary Disease | DX: J44.9 Chronic obstructive pulmonary disease, unspecified (principal); R06.02 Shortness of breath; M19.90 Unspecified osteoarthritis, unspecified site; Z91.09 Other allergy status, other than to drugs and biological substances; F17.210 Nicotine dependence, cigarettes, uncomplicated | CPT/HCPCS: 99214 ==

== ENCOUNTER → 2021-10-02 15:16 | Outpatient (BNVA) | payer MEDICAID, SELFPAY | PROVIDERS: PCP Family Medicine; Visit Provider Internal Medicine Rheumatology | DX: M19.90 Unspecified osteoarthritis, unspecified site (principal); Z79.899 Other long term (current) drug therapy; M79.7 Fibromyalgia; E55.9 Vitamin D deficiency, unspecified; R23.1 Pallor | CPT/HCPCS: 99214 ==

== ENCOUNTER → 2021-10-06 13:34 | Outpatient (BNVA) | payer MEDICAID, SELFPAY | PROVIDERS: PCP Family Medicine; Referring Provider Family Medicine; Visit Provider Podiatrist Foot & Ankle Surgery | DX: M54.16 Radiculopathy, lumbar region (principal); R60.9 Edema, unspecified | CPT/HCPCS: 99203 ==

== ENCOUNTER → 2021-10-06 13:39 | Outpatient (BNVA) | payer MEDICAID, SELFPAY | PROVIDERS: PCP Family Medicine; Referring Provider Family Medicine; Visit Provider Podiatrist Foot & Ankle Surgery | DX: M79.673 Pain in unspecified foot (principal); M17.0 Bilateral primary osteoarthritis of knee | CPT/HCPCS: 73560; 73565; 77077 ==

== ENCOUNTER → 2021-10-06 14:16 | Outpatient (BNVA) | payer MEDICAID, SELFPAY | PROVIDERS: PCP Family Medicine; Referring Provider Family Medicine; Visit Provider Student in an Organized Health Care Education/Training Program | DX: M25.561 Pain in right knee (principal); M25.562 Pain in left knee; G89.29 Other chronic pain; M79.7 Fibromyalgia | CPT/HCPCS: 99213 ==

== ENCOUNTER → 2021-11-11 12:57 | Outpatient (BNVA) | payer MEDICAID, SELFPAY | PROVIDERS: PCP Family Medicine; Referring Provider Family Medicine; Visit Provider Specialist | DX: G62.89 Other specified polyneuropathies (principal) | CPT/HCPCS: 95913 ==

== ENCOUNTER 2021-11-17 13:07 | Outpatient (CLI) | payer MEDICAID, SELFPAY ==
[2021-11-17 15:16] LABS: Basophils # 0.1 10^3/uL (0.0-0.1); Basophils % 0.6 %; Eosinophils # 0.1 10^3/uL (0.0-0.8); Eosinophils % 0.6 %; Hematocrit 38.3 % (37.0-47.0); Hemoglobin 12.4 g/dL (11.5-15.3); Lymphocytes # 3.7 10^3/uL (0.8-4.8); Lymphocytes % 20.7 %; Mean Corpuscular HGB Conc 32.4 g/dL (30.0-36.0); Mean Corpuscular Hemoglobin 32.3 pg (28.0-34.0); Mean Corpuscular Volume 99.7 fl (81-99); Mean Platelet Volume 10.2 fL (7.4-10.4); Monocytes # 0.9 10^3/uL (0.2-0.9); Monocytes % 4.9 %; Neutrophils # 12.88 10^3/uL (1.8-7.7); Neutrophils % 72.7 %; Nucleated Red Blood Cells % 0 %; Platelet Count 263 10^3/cmm (130-400); Red Blood Count 3.84 10^6/uL (4.1-5.3); Red Cell Distribution Width 11.8 % (12.1-15.1); White Blood Count 17.7 10^3/uL (4.0-10.0)
[2021-11-17 15:38] LABS: Alanine Aminotransferase 21 U/L (0-33); Albumin Level 4.1 g/dL (3.5-5.2); Alkaline Phosphatase 84 U/L (35-105); Aspartate Amino Transferase 23 U/L (0-32); C Reactive Protein 8.5 mg/L (0.0-4.9); Globulin 2.7 g/dL (1.3-4.6); Glomerular Filtration Rate 133.4 mL/min (90-130); Total Bilirubin 0.2 mg/dL (0.15-1.2); Total Protein 6.8 g/dL (6.6-8.7)
== END 2021-11-17 13:08 | disposition home or self-care (01) ==
LOC: LAB 13:10
PROVIDERS: PCP Family Medicine; Visit Provider Internal Medicine Rheumatology
DX: M19.90 Unspecified osteoarthritis, unspecified site (principal); Z79.899 Other long term (current) drug therapy
CPT/HCPCS: 80076; 82565; 85025; 86140

== ENCOUNTER → 2022-05-18 10:53 | Outpatient (BNVA) | payer MEDICAID, SELFPAY | PROVIDERS: PCP Family Medicine; Visit Provider Internal Medicine Rheumatology | DX: M79.7 Fibromyalgia (principal); Z79.899 Other long term (current) drug therapy; M19.90 Unspecified osteoarthritis, unspecified site; M06.041 Rheumatoid arthritis without rheumatoid factor, right hand; M06.042 Rheumatoid arthritis without rheumatoid factor, left hand | CPT/HCPCS: 99214 ==

== ENCOUNTER → 2022-05-19 15:45 | Outpatient (BNVA) | payer MEDICAID, SELFPAY | PROVIDERS: PCP Family Medicine; Visit Provider Nurse Practitioner Women's Health | DX: Z01.419 Encounter for gynecological examination (general) (routine) without abnormal findings (principal) | CPT/HCPCS: 87624 ==

== ENCOUNTER → 2022-06-19 10:08 | Outpatient (BNVA) | payer MEDICAID, SELFPAY | PROVIDERS: PCP Family Medicine; Visit Provider Obstetrics & Gynecology | DX: R14.0 Abdominal distension (gaseous) (principal) | CPT/HCPCS: 76830 ==

== ENCOUNTER 2022-06-30 12:20 | Outpatient (CLI) | payer MEDICAID, SELFPAY ==
[2022-06-30 13:31] LABS: Basophils # 0.1 10^3/uL (0.0-0.1); Basophils % 0.7 %; Eosinophils # 0.2 10^3/uL (0.0-0.8); Eosinophils % 1.7 %; Hematocrit 39.8 % (37.0-47.0); Hemoglobin 12.6 g/dL (11.5-15.3); Lymphocytes % 27.5 %; Mean Corpuscular HGB Conc 31.7 g/dL (30.0-36.0); Mean Corpuscular Hemoglobin 31.3 pg (28.0-34.0); Mean Platelet Volume 9.7 fL (7.4-10.4); Monocytes # 0.7 10^3/uL (0.2-0.9); Neutrophils # 6.85 10^3/uL (1.8-7.7); Neutrophils % 63.5 %; Nucleated Red Blood Cells % 0 %; Platelet Count 271 10^3/cmm (130-400); Red Blood Count 4.02 10^6/uL (4.1-5.3); Red Cell Distribution Width 11.9 % (12.1-15.1); White Blood Count 10.8 10^3/uL (4.0-10.0)
[2022-06-30 13:58] LABS: Alanine Aminotransferase 27 U/L (0-33); Albumin Level 4.4 g/dL (3.5-5.2); Alkaline Phosphatase 82 U/L (35-105); Aspartate Amino Transferase 19 U/L (0-32); C Reactive Protein 10.9 mg/L (0.0-4.9); Globulin 2.8 g/dL (1.3-4.6); Glomerular Filtration Rate 77.2 mL/min (90-130); Total Bilirubin 0.4 mg/dL (0.15-1.2); Total Protein 7.2 g/dL (6.6-8.7)
== END 2022-06-30 12:21 | disposition home or self-care (01) ==
LOC: LAB 12:24
PROVIDERS: PCP Family Medicine; Visit Provider Internal Medicine Rheumatology
DX: M19.90 Unspecified osteoarthritis, unspecified site (principal); Z79.899 Other long term (current) drug therapy
CPT/HCPCS: 80076; 82565; 85025; 86140

== ENCOUNTER → 2022-08-20 13:21 | Outpatient (BNVA) | payer MEDICAID, SELFPAY | PROVIDERS: PCP Family Medicine; Visit Provider Podiatrist Foot & Ankle Surgery | DX: R60.9 Edema, unspecified (principal); G60.9 Hereditary and idiopathic neuropathy, unspecified; M79.662 Pain in left lower leg; M79.661 Pain in right lower leg | CPT/HCPCS: 99213 ==

== ENCOUNTER → 2022-09-14 14:41 | Outpatient (BNVA) | payer MEDICAID, SELFPAY | PROVIDERS: PCP Family Medicine; Visit Provider Student in an Organized Health Care Education/Training Program | DX: M75.41 Impingement syndrome of right shoulder; M75.42 Impingement syndrome of left shoulder | CPT/HCPCS: 73030; 99213 ==

== ENCOUNTER 2022-09-24 13:41 | Outpatient (CLI) | payer MEDICAID, SELFPAY ==
[2022-09-24 15:18] LABS: Chol HDL Ratio 6.09 mg/dL (0.0-4.40); Cholesterol 280 mg/dL (0-200); Glomerular Filtration Rate 90.1 mL/min (90-130); HDL Cholesterol 46 mg/dL (60-100); LDL Cholesterol Calculated 183 mg/dL (50-129); LDL HDL Ratio 3.98 RATIO (0.00-3.22); Triglycerides 256 mg/dL (0-150)
== END 2022-09-24 13:42 | disposition home or self-care (01) ==
PROVIDERS: PCP Family Medicine; Visit Provider Psychiatry & Neurology Neurology
DX: G37.9 Demyelinating disease of central nervous system, unspecified (principal)
CPT/HCPCS: 36415; 80061; 82565

== ENCOUNTER → 2022-10-06 13:50 | Outpatient (BNVA) | payer MEDICAID, SELFPAY | PROVIDERS: PCP Family Medicine; Visit Provider Student in an Organized Health Care Education/Training Program | DX: M25.562 Pain in left knee; M25.561 Pain in right knee; M79.7 Fibromyalgia | CPT/HCPCS: 73560; 73565; 99213 ==

== ENCOUNTER 2022-10-23 15:16 | Outpatient (CLI) | payer MEDICAID, SELFPAY ==
[2022-10-23 15:46] LABS: Basophils % 0.1 %; Eosinophils % 0.1 %; Hematocrit 37.9 % (36-47); Lymphocytes # 1.5 10^3/uL (0.8-4.8); Lymphocytes % 11.1 %; Mean Corpuscular HGB Conc 32.5 g/dL (30-55); Mean Corpuscular Hemoglobin 31.5 pg (27-33); Mean Corpuscular Volume 97.2 fl (85-98); Mean Platelet Volume 10.2 fL (7.4-10.4); Monocytes # 0.5 10^3/uL (0.2-0.9); Monocytes % 3.5 %; Neutrophils # 11.48 10^3/uL (1.8-7.7); Neutrophils % 84.5 %; Nucleated Red Blood Cells % 0 %; Platelet Count 326 10^3/cmm (157-399); Red Cell Distribution Width 12.1 % (12.1-15.1); White Blood Count 13.56 10^3/uL (3.29-11.43)
[2022-10-23 16:23] LABS: Alanine Aminotransferase 18 U/L (0-33); Albumin Level 4.4 g/dL (3.5-5.2); Alkaline Phosphatase 86 U/L (35-105); Anion Gap 13.1 (5-19); Aspartate Amino Transferase 15 U/L (0-32); Blood Urea Nitrogen 15 mg/dL (6-20); Calcium 9.1 mg/dL (8.5-10.5); Carbon Dioxide 27 mmol/L (22-29); Chloride 101 mmol/L (98-107); Chol HDL Ratio 5.38 mg/dL (0.0-4.40); Cholesterol 210 mg/dL (0-200); Globulin 2.8 g/dL (1.3-4.6); Glomerular Filtration Rate 67.4 mL/min (90-130); Glucose 143 mg/dL (65-115); HDL Cholesterol 39 mg/dL (60-100); Osmolality Calculated 287 mOsm/kg (285-295); Potassium 4.1 mmol/L (3.5-5.1); Sodium 137 mmol/L (136-145); Thyroid Stimulating Hormone 0.11 uIU/mL (0.27-4.20); Total Bilirubin 0.3 mg/dL (0.15-1.2); Total Protein 7.2 g/dL (6.6-8.7); Triglycerides 530 mg/dL (0-150)
[2022-10-23 17:43] LABS: LDL Cholesterol Direct 91 mg/dL (0-100)
== END 2022-10-23 15:17 | disposition home or self-care (01) ==
PROVIDERS: PCP Family Medicine; Visit Provider Family Medicine
DX: I10 Essential (primary) hypertension (principal); Z79.899 Other long term (current) drug therapy
CPT/HCPCS: 36415; 80053; 80061; 83721; 84443; 85025

== ENCOUNTER 2022-11-04 14:47 | Outpatient (CLI) | payer MEDICAID, SELFPAY ==
[2022-11-04 16:18] LABS: Glomerular Filtration Rate 77.2 mL/min (90-130)
== END 2022-11-04 14:48 | disposition home or self-care (01) ==
LOC: LAB 14:50
PROVIDERS: PCP Family Medicine; Visit Provider Psychiatry & Neurology Neurology
DX: G37.9 Demyelinating disease of central nervous system, unspecified (principal)
CPT/HCPCS: 82565

== ENCOUNTER 2023-01-10 18:36 | Emergency (ER) | payer MEDICAID, SELFPAY ==
[2023-01-10 18:41] VITALS: BP 162/100; PULSE 98; TEMP 36.9; O2SAT 96; BMI 26.5
--- NOTE | 2023-01-10 20:41 | ED_ITS ---
HPI - Extremity Problem General: Chief complaint: Extremity Problem,Nontraumatic Stated complaint: swelling all over, pain Time Seen by Provider: 01/10/23 19:18 History of Present Illness: Patient is a 47-year-old female that presents to the emergency department with a variety of complaints. Initially she came in because she had some type of speech difficulty back on Thanksgiving along with numbness in her lips. During her long discussion patient noted that this happens quite frequently and has been worked up but providers are unsure why this occurs. Patient brought up concerns of swelling in bilateral lower extremities that she has had for some time but worse in the last 2 weeks. She has been recently treated twice for UTI She has been evaluated for cardiovascular disease and had an angiogram but no angioplasty was necessary. Patient has current recommendations of wearing stockings and elevating her lower extremities but has not been utilizing these recommendations Patient also has concerns about her cholesterol and triglycerides. She failed to follow-up as planned about a month ago with her primary care doctor. We are going to evaluate her today for bilateral lower extremity swelling. Associated symptoms: Deny chest pain, fever(s) or rash Review of Systems General: Reports: 10 or more systems reviewed and unremarkable except in HPI and below Const: Denies: fever(s), chills, change in appetite, change in weight, fatigue or malaise Eyes: Denies: change in vision, eye discomfort, eye discharge or eye redness ENMT: Denies: throat pain, enlarged tonsils, odynophagia, hoarseness, ear or mastoid pain, ear discharge, change in hearing, tinnitus, nasal discharge, nasal congestion, post nasal drip or sinus pain Card: Denies: chest pain, palpitations, irregular heart rhythm, edema, dyspnea on exertion, orthopnea or leg pain with exertion Resp: Denies: dyspnea, productive cough, non-productive cough, wheezing, stridor or chest congestion GI: Denies: abdominal pain, nausea, vomiting, dysphagia, diarrhea, constipation, bloating, GI cramping or hematochezia : Denies: flank pain, difficulty voiding, dysuria, urinary frequency, ur inary urgency, urinary hesitancy, oliguria or hematuria Musc: Denies: neck pain, back pain, extremity pain, joint pain, joint swelling, joint redness, joint warmth or muscle weakness Skin/Breast: Denies: rash, pruritus, erythema, photosensitivity or new lesions Neuro: Reports: Slurred speech present (Intermittently for years. ); Denies: headache(s), numbness in extremities, weakness in extremities, sensory changes, lack of coordination, difficulty walking, frequent falls, dizziness, confusion, difficulty communicating thoughts, seizure-like activity or involuntary movements Endo: Denies: polyuria, polydipsia or tired all the time Buck/Lymph: Denies: easy bruising or easy bleeding PFSH ED PFSH: Medical History Abnormal EKG The EKG from 01/31/1990 revealed a sinus rhythm with diffuse nonspecific ST changes, more so in the inferolateral leads. Possible old septal CT Arthralgia of both hands Arthralgia of cervical spine Atypical chest pain Carotid stenosis Edema Encounter for screening for other viral diseases Fibromyalgia High risk medication use Hypertension Immunization counseling Inflammatory arthritis Inflammatory arthritis Low vitamin D level Myalgia Near syncope Palpitations Recurrent UTI Seronegative rheumatoid arthritis of both hands Surgical History S/P eye surgery Family History Grandmother CAD (coronary artery disease) Cancer Diabetes Stroke Clotting disorder Family/Other CAD (coronary artery disease) Lung disease Stroke Father Cancer Dementia Sister CAD (coronary artery disease) Other Family history of premature coronary artery disease Hyperlipidemia Hypertension Denies family history of Chronic kidney disease (CKD) Suicide Anesthesia complication Bleeding disorder Social History Smoking and tobacco/nicotine status: current some day tobacco/nicotine user cigarettes Years cigarettes smoked: 14 Quit status (tobacco/nicotine): considering quitting Second hand smoke exposure: No Alcohol intake: never Substance/Drug Use: never Lives independently: Yes Household members: children Marital status: Legally Current occupational status: unemployed Pets and animals: Yes Do you think of yourself as: Straight/Heterosexual Current gender identity: Female Physical Exam Const: COMMON NORMALS: no acute distress, patient oriented x3 and alert GENERAL APPEARANCE: cooperative ORIENTATION/CONSCIOUSNESS: Yes awake, Yes oriented to person, Yes oriented to place and Yes oriented to time HENMT: COMMON NORMALS: normocephalic and atraumatic HEAD & SCALP: normo cephalic and atraumatic FACE & SINUS: normal facial exam MOUTH: Normal oral and palatal mucosa present THROAT: posterior oropharynx normal Eye: COMMON NORMALS: Equal, round and reactive pupils present, EOMs intact bilaterally, conjunctivae normal and no scleral icterus GENERAL EYE: appearance normal, both eyes and all related structures ALIGNMENT: Yes alignment normal PERIORBITAL: periorbital findings normal CONJUNCTIVA: Yes conjunctivae normal PUPIL: Yes Equal, round and reactive pupils present Neck/C-Spine: COMMON NORMALS: full ROM GENERAL: Yes normal visual inspection Lymph: LYMPHATIC: no lymphadenopathy noted Chest: COMMONS NORMALS: normal inspection of the chest Breast/axilla inspection: Yes no chest deformity, asymmetry, normal contours, no nodules, masses, tenderness Resp: COMMON NORMALS: normal respiratory effort, No retractions, No use of accessory muscles and clear to auscultation bilaterally EFFORT & INSPECTION: Yes able to speak in complete sentences and Yes symmetric chest movement AUSCULTATION: clear to auscultation bilaterally Cardio: COMMON NORMALS: regular rate, regular rhythm and Peripheral pulses 2+ throughout RATE: regular rate RHYTHM: regular rhythm PERIPHERAL PULSES: Peripheral pulses 2+ throughout GI: COMMON NORMALS: Normal to inspection, nondistended, normoactive bowel willian nds present, Soft to palpation, non-tender and No hepatosplenomegaly present INSPECTION: Yes normal to inspection AUSCULTATION: Yes normoactive bowel sounds PALPATION: Yes Soft to palpation and Yes No hepatosplenomegaly present RECTAL EXAM: deferred Extremity: COMMON NORMALS: normal to inspection GENERAL: Yes normal exam except as noted OTHER: Lower extremity edema below the level of the knee. 1+ Neuro: COMMON NORMALS: patient oriented x3 SENSORIUM/ORIENTATION: Yes alert, Yes oriented to person, Yes oriented to place and Yes oriented to time CRANIAL NERVES: Yes CN normal except as noted Psych: COMMON NORMALS: mental status grossly normal, Normal thought process present, cooperative, activity/motor behavior normal, denies homicidal ideation and denies suicidal ideation THOUGHT PROCESS: Normal thought process present Skin: COMMON NORMALS: no rashes or lesions noted, no wounds and turgor normal GENERAL SKIN EXAM: no rashes or lesions noted and turgor normal Course Vital Signs: Vital signs: Vital Signs Temperature 98.5 F 01/10/23 18:41 Pulse Rate 70 01/10/23 20:42 Respiratory Rate 22 H 11/26/23 20:42 Blood Pressure 152/100 01/10/23 20:42 Pulse Oximetry 92 01/10/23 20:42 Oxygen Delivery Me thod Room Air 01/10/23 20:42 MDM - Extremity (Nontraumatic) Medical Decision Making Patient was evaluated in the emergency department for bilateral lower extremity edema below the level of the knee. Patient denies any new pain. Does have chronic knee pain and foot pain. She attributes this pain being worse right now due to discontinuing her rheumatoid arthritis medication. Patient has been evaluated for lower extremity edema and it was recommended that she wear compression stockings and elevate her extremities while at rest. Patient has declined this recommendation. We obtained a CBC, chemistry panel, and a BNP to rule out any heart failure. Laboratory evaluation was unremarkable. Patient is going to be discharged home and is to follow-up with her primary care doctor regarding her other concerns. Patient should return to the emergency department for new, concerning, worsening symptoms Lab Data 01/10/23 20:30 01/10/23 20:30 Laboratory Results WBC 10.83 10^3/uL (3.29-11.43) 01/10/23 20:30 RBC 3.81 10^6/uL (3.85-5.65) L 01/10/23 20:30 Hgb 12.10 g/dL (11.27-16.99) 01/10/23 20:30 Hct 37.9 % (36-47) 01/10/23 20:30 MCV 99.5 fl (85-98) H 01/10/23 20: MCH 31.8 pg (27-33) 01/10/23 20:30 MCHC 31.9 g/dL (30-55) 01/10/23 20:30 RDW 12.5 % (12.1-15.1) 01/10/23 20:30 Plt Count 229 10^3/cmm (157-399) 01/10/23 20:30 MPV 10.1 fL (7.4-10.4) 01/10/23 20:30 Neut % (Auto) 80.8 % 01/10/23 20:30 Lymph % (Auto) 14.2 % 01/10/23 20:30 Butts % (Auto) 3.8 % 01/10/23 20:30 Eos % (Auto) 0.3 % 01/10/23 20:30 Baso % (Auto) 0.4 % 01/10/23 20:30 Neut # (Auto) 8.76 10^3/uL (1.8-7.7) H 01/10/23 20:30 Lymph # (Auto) 1.5 10^3/uL (0.8-4.8) 01/10/23 20:30 Butts # (Auto) 0.4 10^3/uL (0.2-0.9) 01/10/23 20:30 Eos # (Auto) 0.0 10^3/uL (0.0-0.8) 01/10/23 20: Baso # (Auto) 0.0 10^3/uL (0.0-0.1) 01/10/23 20:30 Nucleated RBC % (auto) 0 % 01/10/23 20: Nucleated RBCs # 0.0 /100WBC 01/10/23 20:30 Sodium 142 mmol/L (136-145) 01/10/23 20:30 Potassium 4.2 mmol/L (3.5-5.1) 01/10/23 20:30 Chloride 106 mmol/L (98-107) 01/10/23 20:30 Carbon Dioxide 27 mmol/L (22-29) 01/10/23 20:30 Anion Gap 13.2 (5-19) 01/10/23 20:30 BUN 7 mg/dL (6-20) 01/10/23 20:30 Creatinine 0.7 mg/dL (0.5-0.9) 01/10/23 20:30 GFR Calculation 90.1 mL/min (90-130) 01/10/23 20:30 Glucose 108 mg/dL (65-115) 01/10/23 20:30 Calculated Osmolality 293 mOsm/kg (285-295) 01/10/23 20:30 Calcium 9.5 mg/dL (8.5-10.5) 01/10/23 20:30 NT-Pro-B Natriuret Pep 259 pg/mL (0-125) H 01/10/23 20:30 No radiology studies performed this visit Discharge Plan Discharge Patient Disposition: Home Clinical Impression: Bilateral edema of lower extremity Condition: Stable Prescriptions: No Action hydrocodone-acetaminophen 10-325 mg tablet 1 tab PO Q4H PRN (Reason: Pain) lidocaine 5 % adhesive patch,medicated 1 patch TOPICAL Q24H PRN (Reason: Pain) duloxetine 60 mg capsule, delayed rel sprinkle 60 mg PO .every other day alprazolam 2 mg tablet 2 mg PO TID celecoxib [Celebrex] 200 mg capsule 200 mg PO DAILY Hold Instructions: Doctor's Order cyclobenzaprine 10 mg tablet 10 mg PO BID PRN (Reason: muscle spasm) cholecalciferol (vitamin D3) 2,000 unit tablet 2,000 unit PO .daily 90 Days Qty: 90 1RF vitamin B complex Tablet 1 tab PO DAILY ascorbic acid (vitamin C) 500 mg capsule PO carvedilol 3.125 mg tablet 3.125 mg PO DAILY PRN Rx Instructions: must administer with a meal/food - take if having elevated BP fentanyl 25 mcg/hr patch 72 hour 1 patch transdermal Q72H (DME) Compession Stockings See Rx Instructions .Route .MEDSUPPLY Qty: 1 0RF Rx Instructions: As directed compression stockings that reach the knees (DME) Compression Stockings See Rx Instructions .Route .MEDSUPPLY Qty: 1 0RF Rx Instructions: As directed prednisone 20 mg tablet 20 mg PO DAILY Qty: 15 0RF Rx Instructions: 60mg X3 days 40mg X2 days 20mg X 2days prednisone 10 mg tablet 10 mg PO DAILY Qty: 90 1RF leflunomide 20 mg tablet See Rx Instructions .ROUTE .COMPLEX Qty: 30 0RF Dose Instruction: TAKE ONE TABLET BY MOUTH DAILY Rx Instructions: TAKE ONE TABLET BY MOUTH DAILY Discharge Orders: Discharge ED (Routine); Ordered 01/10/23 [facility] Referrals: Eleanor Lewis DO [Primary Care Provider] - Discharge Diet: Advance as tolerated Discharge Activity: Resume usual activity Patient Instructions: Leg Edema (ED), Pain Management Activity Restrictions/Additional Instructions: Please wear your compression stockings and elevate your extremities as needed for the lower extremity edema. Please follow-up with your primary care doctor Return to the emergency department for new, concerning, worsening symptoms Coding Level of Care Code ED Reconstructive Dentist for Davis Blum
[2023-01-10 20:42] VITALS: BP 152/100; PULSE 70; RESP 22; O2SAT 92
[2023-01-10 20:42] LABS: Basophils % 0.4 %; Eosinophils % 0.3 %; Hematocrit 37.9 % (36-47); Lymphocytes # 1.5 10^3/uL (0.8-4.8); Lymphocytes % 14.2 %; Mean Corpuscular HGB Conc 31.9 g/dL (30-55); Mean Corpuscular Hemoglobin 31.8 pg (27-33); Mean Corpuscular Volume 99.5 fl (85-98); Mean Platelet Volume 10.1 fL (7.4-10.4); Monocytes # 0.4 10^3/uL (0.2-0.9); Monocytes % 3.8 %; Neutrophils # 8.76 10^3/uL (1.8-7.7); Neutrophils % 80.8 %; Nucleated Red Blood Cells % 0 %; Platelet Count 229 10^3/cmm (157-399); Red Blood Count 3.81 10^6/uL (3.85-5.65); Red Cell Distribution Width 12.5 % (12.1-15.1); White Blood Count 10.83 10^3/uL (3.29-11.43)
[2023-01-10 21:07] LABS: Anion Gap 13.2 (5-19); Blood Urea Nitrogen 7 mg/dL (6-20); Calcium 9.5 mg/dL (8.5-10.5); Carbon Dioxide 27 mmol/L (22-29); Chloride 106 mmol/L (98-107); Glomerular Filtration Rate 90.1 mL/min (90-130); Glucose 108 mg/dL (65-115); NT Pro B Type Natriuretic Pept 259 pg/mL (0-125); Osmolality Calculated 293 mOsm/kg (285-295); Potassium 4.2 mmol/L (3.5-5.1); Sodium 142 mmol/L (136-145)
== END 2023-01-10 21:46 | disposition home or self-care (01) ==
PROVIDERS: Emergency Provider Nurse Practitioner; PCP Family Medicine
DX: R60.0 Localized edema (principal); I10 Essential (primary) hypertension; F17.210 Nicotine dependence, cigarettes, uncomplicated
CPT/HCPCS: 36415; 80048; 83880; 85025; 99283

== ENCOUNTER 2023-02-14 19:02 | Emergency (ER) | payer MEDICAID, SELFPAY ==
--- NOTE | 2023-02-14 19:04 | XRR_ITS ---
PROCEDURE INFORMATION: Exam: XR Chest Exam date and time: 02/14/2023 7:26 PM Age: 47 years old Clinical indication: Angina pectoris; Patient HX: Chest pain TECHNIQUE: Imaging protocol: Radiologic exam of the chest. Views: 1 view. COMPARISON: CT chest w con* [id number] 02/07/2020 1:24 PM FINDINGS: Lungs: Unremarkable. No consolidation. Pleural spaces: Unremarkable. No pleural effusion. No pneumothorax. Heart/Mediastinum: Unremarkable. No cardiomegaly. Bones/joints: Unremarkable. XR/XR chest 1V portable [id number] IMPRESSION: No acute findings.
--- NOTE | 2023-02-14 19:04 | ECG_ITS ---
[facility] Test Date: 2023-02-14 Pat Name: Julia Beckford Department: Room: Gender: Female Dish Maker: : 1975 Requested By: Liza Silveira Order Number: [id number] Jasvir MD: Reyes Correa M.D. Measurements Intervals [place] Rate: 93 P: 61 OK: 142 QRS: 76 QRSD: 76 T: 26 QT: 367 QTc: 456 Interpretive Statements SINUS RHYTHM POSSIBLE RIGHT VENTRICULAR CONDUCTION DELAY [RSR (QR) IN V1/V2] MODERATE ST DEPRESSION [0.05+ mV ST DEPRESSION] Compared to ECG 01/31/2019 16:59:58 ST (T wave) deviation now present T-wave abnormality no longer present Electronically Signed On 02-15-2023 8:36:02 TUFTER HAND by Reyes Correa M.D. [id number]
[2023-02-14 19:15] VITALS: BP 108/76; PULSE 97; RESP 16; TEMP 36.7; O2SAT 95; BMI 26.5
[2023-02-14 19:56] LABS: Basophils % 0.4 %; Eosinophils # 0.1 10^3/uL (0.0-0.8); Eosinophils % 1.3 %; Hematocrit 38.1 % (36-47); Lymphocytes # 2.9 10^3/uL (0.8-4.8); Mean Corpuscular HGB Conc 31.2 g/dL (30-55); Mean Corpuscular Hemoglobin 32.1 pg (27-33); Mean Corpuscular Volume 102.7 fl (85-98); Monocytes # 0.7 10^3/uL (0.2-0.9); Monocytes % 6.7 %; Neutrophils # 6.75 10^3/uL (1.8-7.7); Nucleated Red Blood Cells % 0 %; Platelet Count 238 10^3/cmm (157-399); Red Blood Count 3.71 10^6/uL (3.85-5.65); Red Cell Distribution Width 11.6 % (12.1-15.1); White Blood Count 10.55 10^3/uL (3.29-11.43)
[2023-02-14 20:16] LABS: Troponin(5th) Baseline < 6 ng/L (0-10)
[2023-02-14 20:23] LABS: Alanine Aminotransferase 30 U/L (0-33); Alkaline Phosphatase 95 U/L (35-105); Anion Gap 12.7 (5-19); Aspartate Amino Transferase 24 U/L (0-32); Blood Urea Nitrogen 6 mg/dL (6-20); Calcium 9.6 mg/dL (8.5-10.5); Carbon Dioxide 29 mmol/L (22-29); Chloride 101 mmol/L (98-107); Globulin 2.4 g/dL (1.3-4.6); Glomerular Filtration Rate 90.1 mL/min (90-130); Glucose 119 mg/dL (65-115); Osmolality Calculated 287 mOsm/kg (285-295); Potassium 3.7 mmol/L (3.5-5.1); Sodium 139 mmol/L (136-145); Total Bilirubin 0.3 mg/dL (0.15-1.2); Total Protein 6.4 g/dL (6.6-8.7)
[2023-02-14 21:30] LABS: Troponin 5 2HR 6.22 ng/L (0-10); Troponin 5 2HR Delta 0.22001 ABS# (0-10)
--- NOTE | 2023-02-14 21:34 | W.ED.BACK ---
HPI - Back Pain/Injury General: Chief Complaint: Back Pain/Injury Stated Complaint: fall 2 weeks ago, back pain, chest heaviness Time Seen by Provider: 02/14/23 21:22 Source: patient Mode of arrival: ambulatory Limitations: no limitations History of Present Illness: 47-year-old female states she has been having chest heaviness for the last 2 weeks. States she has had multiple falls she is dealt with weakness for quite some time she had some back pain states since resolved. States that she just had a heaviness in her chest she denies any shortness of breath denies any cough denies any fevers. Associated symptoms: Deny abdominal pain, chills, fever(s), nausea or vomiting Review of Systems Const: Denies: fever(s) or chills ENMT: Denies: throat pain or dental pain Card: Reports: chest pain Resp: Denies: dyspnea GI: Denies: abdominal pain, nausea, vomiting or diarrhea Musc: Reports: back pain; Denies: neck pain Skin/Breast: Denies: rash Neuro: Denies: headache(s) PFSH ED PFSH: Medical History Immunization counseling Seronegative rheumatoid arthritis of both hands Recurrent UTI Edema High risk medication use Inflammatory arthritis Near syncope Palpitations Carotid stenosis Arthralgia of both hands Arthralgia of cervical spine Low vitamin D level Hypertension Fibromyalgia Abnormal EKG The EKG from 01/31/1990 revealed a sinus rhythm with diffuse nonspecific ST changes, more so in the inferolateral leads. Possible old septal ND Atypical chest pain Inflammatory arthritis Encounter for screening for other viral diseases Myalgia Surgical History S/P eye surgery Family History Grandmother CAD (coronary artery disease) Cancer Diabetes Stroke Clotting disorder Family/Other CAD (coronary artery disease) Lung disease Stroke Father Cancer Dementia Sister CAD (coronary artery disease) Other Family history of premature coronary artery disease Hyperlipidemia Hypertension Denies family history of Chronic kidney disease (CKD) Suicide Anesthesia complication Bleeding disorder Social History Smoking and tobacco/nicotine status: current some day tobacco/nicotine user cigarettes Years cigarettes smoked: 14 Quit status (tobacco/nicotine): considering quitting Second hand smoke exposure: No Alcohol intake: never Substance/Drug Use: never Lives independently: Yes Household members: children Marital status: Legally Current occupational status: unemployed Pets and animals: Yes Do you think of yourself as: Straight/Heterosexual Current gender identity: Female Physical Exam Const: COMMON NORMALS: no acute distress, patient oriented x3 and healthy appearing HENMT: COMMON NORMALS: normocephalic and atraumatic HEAD & SCALP: normocephalic and atraumatic Eye: COMMON NORMALS: Equal, round and reactive pupils present and EOMs intact bilaterally PUPIL: Yes Equal, round and reactive pupils present Neck/C-Spine: COMMON NORMALS: full ROM and supple Chest: COMMONS NORMALS: normal inspection of the chest and normal palpation of entire chest wall Resp: COMMON NORMALS: normal respiratory effort, No retractions, No use of accessory muscles and clear to auscultation bilaterally AUSCULTATION: clear to auscultation bilaterally Cardio: COMMON NORMALS: regular rate, regular rhythm and No murmurs present (Cardio) RATE: regular rate RHYTHM: regular rhythm GI: COMMON NORMALS: Normal to inspection, nondistended, normoactive bowel sounds present, Soft to palpation, non-tender and no masses PALPATION: Yes Soft to palpation Extremity: COMMON NORMALS: normal to inspection and full ROM Neuro: COMMON NORMALS: patient oriented x3, moves all extremities and no focal motor deficits Psych: COMMON NORMALS: mental status grossly normal, Normal thought process present and cooperative THOUGHT PROCESS: Normal thought process present Skin: COMMON NORMALS: no rashes or lesions noted and no wounds GENERAL SKIN EXAM: no rashes or lesions noted Course Vital Signs: Vital signs: Vital Signs Temperature 98.1 F 02/14/23 19:15 Pulse Rate 97 02/14/23 19:15 Respiratory Rate 14 02/14/23 21:47 Blood Pressure 112/71 02/14/23 21:47 Pulse Oximetry 95 02/14/23 19:15 Oxygen Delivery Me thod Room Air 02/14/23 19:15 MDM - Back Pain/Injury Medical Decision Making Patient presents here with chest pain that is atypical in nature EKG x-ray and troponins are all normal did examine her back she has no point tenderness she is well-appearing here she is stable for discharge she is to follow-up with her PCP and return if worsening. Medical Records I reviewed the patient's medical records. Labs I reviewed the patient's lab results. 02/14/23 19:38 02/14/23 19:38 Radiology Impressions Chest X-Ray 02/14/23 19:04 IMPRESSION: No acute findings. Laboratory Results WBC 10.55 10^3/uL (3.29-11.43) 02/14/23 19:38 RBC 3.71 10^6/uL (3.85-5.65) L 02/14/23 19:38 Hgb 11.90 g/dL (11.27-16.99) 02/14/23 19:38 Hct 38.1 % (36-47) 02/14/23 19:38 MCV 102.7 fl (85-98) H 02/14/23 19:38 MCH 32.1 pg (27-33) 02/14/23 19:38 MCHC 31.2 g/dL (30-55) 02/14/23 19:38 RDW 11.6 % (12.1-15.1) L 02/14/23 19:38 Plt Count 238 10^3/cmm (157-399) 02/14/23 19:38 MPV 10.0 fL (7.4-10.4) 02/14/23 19:38 Neut % (Auto) 64.0 % 02/14/23 19:38 Lymph % (Auto) 27.0 % 02/14/23 19:38 [place] % (Auto) 6.7 % 02/14/23 19:38 Eos % (Auto) 1.3 % 02/14/23 19:38 Baso % (Auto) 0.4 % 02/14/23 19:38 Neut # (Auto) 6.75 10^3/uL (1.8-7.7) 02/14/23 19:38 Lymph # (Auto) 2.9 10^3/uL (0.8-4.8) 02/14/23 19:38 [facility] # (Auto) 0.7 10^3/uL (0.2-0.9) 02/14/23 19:38 Eos # (Auto) 0.1 10^3/uL (0.0-0.8) 02/14/23 19:38 Baso # (Auto) 0.0 10^3/uL (0.0-0.1) 02/14/23 19:38 Nucleated RBC % (auto) 0 % 02/14/23 19:38 Nucleated RBCs # 0.0 /100WBC 02/14/23 19:38 Sodium 139 mmol/L (136-145) 02/14/23 19:38 Potassium 3.7 mmol/L (3.5-5.1) 02/14/23 19:38 Chloride 101 mmol/L (98-107) 02/14/23 19:38 Carbon Dioxide 29 mmol/L (22-29) 02/14/23 19:38 Anion Gap 12.7 (5-19) 02/14/23 19:38 BUN 6 mg/dL (6-20) 02/14/23 19:38 Creatinine 0.7 mg/dL (0.5-0.9) 02/14/23 19:38 GFR Calculation 90.1 mL/min (90-130) 02/14/23 19:38 Glucose 119 mg/dL (65-115) H 02/14/23 19:38 Calculated Osmolality 287 mOsm/kg (285-295) 02/14/23 19:38 Calcium 9.6 mg/dL (8.5-10.5) 02/14/23 19:38 Total Bilirubin 0.3 mg/dL (0.15-1.2) 02/14/23 19:38 AST 24 U/L (0-32) 02/14/23 19:38 ALT 30 U/L (0-33) 02/14/23 19:38 Alkaline Phosphatase 95 U/L (35-105) 02/14/23 19:38 Troponin T Baseline < 6 ng/L (0-10) 02/14/23 19:38 Troponin T 120 Minute 6.22 ng/L (0-10) 02/14/23 21:09 Delta Troponin T 0.05277 ABS# (0-10) 02/14/23 21:09 Total Protein 6.4 g/dL (6.6-8.7) L 02/14/23 19:38 Albumin 4.0 g/dL (3.5-5.2) 02/14/23 19:38 Globulin 2.4 g/dL (1.3-4.6) 02/14/23 19:38 All radiology interpretation(s) finalized by discharge Discharge Plan Discharge Patient Disposition: Home Clinical Impression: Chest pain Condition: Stable Prescriptions: No Action hydrocodone-acetaminophen 10-325 mg tablet 1 tab PO Q4H PRN (Reason: Pain) lidocaine 5 % adhesive patch,medicated 1 patch TOPICAL Q24H PRN (Reason: Pain) duloxetine 60 mg capsule, delayed rel sprinkle 60 mg PO .every other day alprazolam 2 mg tablet 2 mg PO TID celecoxib [Celebrex] 200 mg capsule 200 mg PO DAILY Hold Instructions: Doctor's Order cyclobenzaprine 10 mg tablet 10 mg PO BID PRN (Reason: muscle spasm) cholecalciferol (vitamin D3) 2,000 unit tablet 2,000 unit PO .daily 90 Days Qty: 90 1RF vitamin B complex Tablet 1 tab PO DAILY ascorbic acid (vitamin C) 500 mg capsule PO carvedilol 3.125 mg tablet 3.125 mg PO DAILY PRN Rx Instructions: must administer with a meal/food - take if having elevated BP fentanyl 25 mcg/hr patch 72 hour 1 patch transdermal Q72H (DME) Compession Stockings See Rx Instructions .Route .MEDSUPPLY Qty: 1 0RF Rx Instructions: As directed compression stockings that reach the knees (DME) Compression Stockings See Rx Instructions .Route .MEDSUPPLY Qty: 1 0RF Rx Instructions: As directed prednisone 20 mg tablet 20 mg PO DAILY Qty: 15 0RF Rx Instructions: 60mg X3 days 40mg X2 days 20mg X 2days prednisone 10 mg tablet 10 mg PO DAILY Qty: 90 1RF leflunomide 20 mg tablet See Rx Instructions .ROUTE .COMPLEX Qty: 30 0RF Dose Instruction: TAKE ONE TABLET BY MOUTH DAILY Rx Instructions: TAKE ONE TABLET BY MOUTH DAILY Discharge Orders: Discharge ED (Routine); Ordered 02/14/23 Ordered By: Liza Silveira Referrals: Eleanor Lewis DO [Primary Care Provider] - 1-3 days Discharge Diet: Advance as tolerated Discharge Activity: Resume usual activity Patient Instructions: Chest Pain (ED) Coding Level of Care Code ED Space Systems Operations Manager for Davis Blum
[2023-02-14 21:47] VITALS: BP 112/71; RESP 14
== END 2023-02-14 21:48 | disposition home or self-care (01) ==
PROVIDERS: Emergency Provider Emergency Medicine; PCP Family Medicine
DX: R07.9 Chest pain, unspecified (principal); F17.210 Nicotine dependence, cigarettes, uncomplicated; I10 Essential (primary) hypertension
CPT/HCPCS: 36415; 71045; 80053; 84484; 85025; 93005; 99285

== ENCOUNTER 2023-02-19 16:51 | Emergency (ER) | payer MEDICAID, SELFPAY ==
[2023-02-19 16:56] VITALS: BP 145/74; PULSE 92; RESP 14; O2SAT 98
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
[2023-02-19 19:00] VITALS: RESP 16; TEMP 36.8
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
[2023-02-19 20:37] VITALS: PULSE 89; O2SAT 96
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
[2023-02-19 21:03] VITALS: PULSE 75; O2SAT 99
== END 2023-02-19 21:10 | disposition home or self-care (01) ==
PROVIDERS: Emergency Provider Nurse Practitioner; PCP Family Medicine
DX: Z04.1 Encounter for examination and observation following transport accident (principal); M79.18 Myalgia, other site; F17.210 Nicotine dependence, cigarettes, uncomplicated; I10 Essential (primary) hypertension; V89.2XXA Person injured in unspecified motor-vehicle accident, traffic, initial encounter
CPT/HCPCS: 70450; 71045; 72125; 99284

== ENCOUNTER → 2023-03-23 14:29 | Outpatient (BNVA) | payer MEDICAID, SELFPAY | PROVIDERS: PCP Family Medicine; Visit Provider Physician Assistant | DX: M25.561 Pain in right knee (principal); M25.562 Pain in left knee | CPT/HCPCS: 73560; 73565; 99213 ==

== ENCOUNTER 2023-04-20 12:51 | Outpatient (CLI) | payer MEDICAID, SELFPAY ==
[2023-04-20 13:16] LABS: Basophils # 0.1 10^3/uL (0.0-0.1); Basophils % 1.1 %; Eosinophils # 0.2 10^3/uL (0.0-0.8); Eosinophils % 2.3 %; Hematocrit 37.2 % (36-47); Lymphocytes # 2.3 10^3/uL (0.8-4.8); Lymphocytes % 33.3 %; Mean Corpuscular HGB Conc 32.3 g/dL (30-55); Mean Corpuscular Hemoglobin 30.8 pg (27-33); Mean Corpuscular Volume 95.4 fl (85-98); Monocytes # 0.7 10^3/uL (0.2-0.9); Monocytes % 9.6 %; Neutrophils # 3.72 10^3/uL (1.8-7.7); Neutrophils % 53.6 %; Nucleated Red Blood Cells % 0 %; Platelet Count 221 10^3/cmm (157-399); Red Cell Distribution Width 11.5 % (12.1-15.1); White Blood Count 6.96 10^3/uL (3.29-11.43)
[2023-04-20 13:45] LABS: Alanine Aminotransferase 15 U/L (0-33); Albumin Level 3.8 g/dL (3.5-5.2); Alkaline Phosphatase 120 U/L (35-105); Anion Gap 15.1 (5-19); Aspartate Amino Transferase 20 U/L (0-32); Blood Urea Nitrogen 9 mg/dL (6-20); Carbon Dioxide 27 mmol/L (22-29); Chloride 103 mmol/L (98-107); Chol HDL Ratio 7.48 mg/dL (0.0-4.40); Cholesterol 247 mg/dL (0-200); Glomerular Filtration Rate 90.1 mL/min (90-130); Glucose 97 mg/dL (65-115); HDL Cholesterol 33 mg/dL (60-100); LDL Cholesterol Calculated 151 mg/dL (50-129); LDL HDL Ratio 4.58 RATIO (0.00-3.22); Osmolality Calculated 289 mOsm/kg (285-295); Potassium 5.1 mmol/L (3.5-5.1); Sodium 140 mmol/L (136-145); Total Bilirubin 0.4 mg/dL (0.15-1.2); Total Protein 6.8 g/dL (6.6-8.7); Triglycerides 314 mg/dL (0-150)
[2023-04-22 12:20] LABS: Quantiferon Mitogen 7.74 IU/mL; Quantiferon Nil 0.13 IU/mL; Quantiferon Plus TB1 0.02 IU/mL; Quantiferon Plus TB2 <0.00 IU/mL; Quantiferon TB Gold NEGATIVE (NEGATIVE)
== END 2023-04-20 12:52 | disposition home or self-care (01) ==
LOC: LAB 12:56
PROVIDERS: PCP Family Medicine; Visit Provider Family Medicine
DX: I10 Essential (primary) hypertension (principal); E78.2 Mixed hyperlipidemia; M19.90 Unspecified osteoarthritis, unspecified site
CPT/HCPCS: 36415; 80053; 80061; 84443; 85025; 86480

== ENCOUNTER 2023-05-28 15:13 | Outpatient (CLI) | payer MEDICAID, SELFPAY ==
--- NOTE | 2023-05-28 15:23 | XRR_ITS ---
PROCEDURE INFORMATION: Exam: XR Chest Exam date and time: 05/28/2023 3:41 PM Age: 48 years old Clinical indication: Pain; Chest pressure TECHNIQUE: Imaging protocol: Radiologic exam of the chest. Views: 2 views. COMPARISON: CR XR chest 1V portable [id number] 02/19/2023 7:44 PM FINDINGS: Lungs: Unremarkable. No consolidation or mass. Pleural spaces: Unremarkable. No pleural effusion. No pneumothorax. Heart/Mediastinum: Unremarkable. No cardiomegaly. Bones/joints: Unremarkable. XR/XR chest 2V* [id number] IMPRESSION: No acute findings.
--- NOTE | 2023-05-28 15:38 | XRR_ITS ---
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 Views: 2 or 3 views. COMPARISON: CR XR lumbar spine 2-3V* [id number] 01/21/2021 10:47 AM FINDINGS: Bones/joints: Normal. No acute fracture. Normal alignment. No significant arthritic change. Soft tissues: Unremarkable. XR/XR lumbar spine 2-3V* [id number] IMPRESSION: No acute findings.
--- NOTE | 2023-05-28 15:38 | XRR_ITS ---
PROCEDURE INFORMATION: Exam: XR Cervical Spine Exam date and time: 05/28/2023 3:41 PM Age: 48 years old Clinical indication: Neck pain; Additional info: Chronic neck pain TECHNIQUE: Imaging protocol: Radiologic exam of the cervical spine. Views: 2 or 3 views. COMPARISON: CT cervical spin wo con* [id number] 02/19/2023 5:28 PM FINDINGS: Bones/joints: Normal. No acute fracture. Normal alignment.No significant arthritic change. Soft tissues: Unremarkable. XR/XR cervical spine 3V* [id number] IMPRESSION: No acute findings.
--- NOTE | 2023-05-28 15:38 | XRR_ITS ---
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 Views: 3 views. COMPARISON: CR XR thoracic spine 3V* [id number] 01/21/2021 10:47 AM FINDINGS: Bones/joints: Normal. No acute fracture. Normal alignment. Soft tissues: Unremarkable. XR/XR thoracic spine 2V [id number] IMPRESSION: No acute findings.
== END 2023-05-28 15:14 | disposition home or self-care (01) ==
LOC: RAD 15:15
PROVIDERS: PCP Family Medicine; Visit Provider Family Medicine
DX: M54.41 Lumbago with sciatica, right side (principal); G89.29 Other chronic pain
CPT/HCPCS: 71046; 72040; 72070; 72100

== ENCOUNTER 2023-06-24 12:37 | Outpatient (CLI) | payer MEDICAID, SELFPAY ==
[2023-06-24 13:34] LABS: Alanine Aminotransferase 14 U/L (0-33); Albumin Level 4.2 g/dL (3.5-5.2); Alkaline Phosphatase 159 U/L (35-105); Anion Gap 15.2 (5-19); Aspartate Amino Transferase 19 U/L (0-32); Blood Urea Nitrogen 7 mg/dL (6-20); Calcium 9.6 mg/dL (8.5-10.5); Carbon Dioxide 26 mmol/L (22-29); Chloride 105 mmol/L (98-107); Creatine Phosphokinase 50 U/L (26-192); Globulin 3.2 g/dL (1.3-4.6); Glomerular Filtration Rate 107.2 mL/min (90-130); Glucose 88 mg/dL (65-115); Osmolality Calculated 291 mOsm/kg (285-295); Potassium 4.2 mmol/L (3.5-5.1); Sodium 142 mmol/L (136-145); Total Bilirubin 0.5 mg/dL (0.15-1.2); Total Protein 7.4 g/dL (6.6-8.7)
[2023-06-28 10:54] LABS: Quantiferon Mitogen 8.38 IU/mL; Quantiferon Nil 0.05 IU/mL; Quantiferon TB Gold NEGATIVE (NEGATIVE)
== END 2023-06-24 12:38 | disposition home or self-care (01) ==
LOC: LAB 12:40
PROVIDERS: PCP Family Medicine; Visit Provider Family Medicine
DX: M79.10 Myalgia, unspecified site (principal); M19.90 Unspecified osteoarthritis, unspecified site
CPT/HCPCS: 80053; 82550; 86480

== ENCOUNTER 2023-06-30 10:11 | Outpatient (CLI) | payer MEDICAID, SELFPAY ==
[2023-06-30 10:29] VITALS: PULSE 86; RESP 18; O2SAT 98
[2023-06-30] MEDS: albuterol 2.5 mg/3 mL Neb INHALATION (10:29)
[2023-06-30 10:34] VITALS: PULSE 92
== END 2023-06-30 10:12 | disposition home or self-care (01) ==
LOC: RT 10:13
PROVIDERS: PCP Family Medicine; Visit Provider Family Medicine
DX: R06.02 Shortness of breath (principal)
CPT/HCPCS: 94726; 94729; J7613

== ENCOUNTER 2023-07-16 16:44 | Outpatient (CLI) | payer MEDICAID, SELFPAY ==
[2023-07-16 17:21] LABS: Basophils # 0.1 10^3/uL (0.0-0.1); Basophils % 0.9 %; Eosinophils # 0.2 10^3/uL (0.0-0.8); Eosinophils % 3.3 %; Hematocrit 37.3 % (36-47); Lymphocytes # 2.7 10^3/uL (0.8-4.8); Lymphocytes % 46.2 %; Mean Corpuscular HGB Conc 32.2 g/dL (30-55); Mean Corpuscular Hemoglobin 30.9 pg (27-33); Mean Corpuscular Volume 96.1 fl (85-98); Mean Platelet Volume 10.5 fL (7.4-10.4); Monocytes # 0.5 10^3/uL (0.2-0.9); Monocytes % 7.9 %; Neutrophils # 2.38 10^3/uL (1.8-7.7); Neutrophils % 41.5 %; Nucleated Red Blood Cells % 0 %; Platelet Count 187 10^3/cmm (157-399); Red Blood Count 3.88 10^6/uL (3.85-5.65); Red Cell Distribution Width 12.6 % (12.1-15.1); White Blood Count 5.73 10^3/uL (3.29-11.43)
[2023-07-16 17:38] LABS: Alanine Aminotransferase 14 U/L (0-33); Albumin Level 4.2 g/dL (3.5-5.2); Alkaline Phosphatase 128 U/L (35-105); Aspartate Amino Transferase 17 U/L (0-32); C Reactive Protein 4.7 mg/L (0.0-4.9); Globulin 2.9 g/dL (1.3-4.6); Glomerular Filtration Rate 89.7 mL/min (90-130); Total Bilirubin 0.3 mg/dL (0.15-1.2); Total Protein 7.1 g/dL (6.6-8.7)
[2023-07-19 11:24] LABS: Copper Level 176 mcg/dL (70-175)
[2023-07-22 20:34] LABS: Vitamin K 347 pg/mL (130-1500)
== END 2023-07-16 16:45 | disposition home or self-care (01) ==
PROVIDERS: Internal Medicine Rheumatology; PCP Family Medicine; Visit Provider Family Medicine
DX: Z79.899 Other long term (current) drug therapy (principal); M06.041 Rheumatoid arthritis without rheumatoid factor, right hand; M06.042 Rheumatoid arthritis without rheumatoid factor, left hand; Z91.89 Other specified personal risk factors, not elsewhere classified; K90.89 Other intestinal malabsorption; E78.2 Mixed hyperlipidemia; M19.90 Unspecified osteoarthritis, unspecified site; I10 Essential (primary) hypertension
CPT/HCPCS: 36415; 80076; 82525; 82565; 83735; 84255; 84597; 85025; 86140

== ENCOUNTER 2023-09-03 15:36 | Outpatient (CLI) | payer MEDICAID, SELFPAY ==
[2023-09-03 16:29] LABS: Basophils # 0.1 10^3/uL (0.0-0.1); Basophils % 0.9 %; Eosinophils # 0.2 10^3/uL (0.0-0.8); Eosinophils % 1.9 %; Hematocrit 37.4 % (36-47); Lymphocytes # 2.6 10^3/uL (0.8-4.8); Lymphocytes % 29.1 %; Mean Corpuscular Hemoglobin 31.1 pg (27-33); Mean Corpuscular Volume 100.3 fl (85-98); Mean Platelet Volume 10.6 fL (7.4-10.4); Monocytes # 0.7 10^3/uL (0.2-0.9); Monocytes % 7.5 %; Neutrophils # 5.31 10^3/uL (1.8-7.7); Neutrophils % 60.4 %; Nucleated Red Blood Cells % 0 %; Platelet Count 247 10^3/cmm (157-399); Red Blood Count 3.73 10^6/uL (3.85-5.65); Red Cell Distribution Width 12.3 % (12.1-15.1)
[2023-09-06 12:20] LABS: Ceruloplasmin 34 mg/dL (14-48)
[2023-09-06 14:05] LABS: Cyclic Citrullinated Peptide <16 UNITS
== END 2023-09-03 15:37 | disposition home or self-care (01) ==
PROVIDERS: PCP Family Medicine; Visit Provider Family Medicine
DX: E78.2 Mixed hyperlipidemia (principal); Z91.89 Other specified personal risk factors, not elsewhere classified; K90.89 Other intestinal malabsorption; M19.90 Unspecified osteoarthritis, unspecified site; I10 Essential (primary) hypertension
CPT/HCPCS: 36415; 82139; 82390; 84075; 84080; 85025; 86200

== ENCOUNTER → 2023-10-29 11:02 | Outpatient (BNVA) | payer MEDICAID, SELFPAY | PROVIDERS: PCP Family Medicine; Visit Provider Student in an Organized Health Care Education/Training Program | DX: M79.642 Pain in left hand (principal); M79.641 Pain in right hand; M65.312 Trigger thumb, left thumb | CPT/HCPCS: 73130 ==

== ENCOUNTER → 2023-11-16 12:54 | Outpatient (BNVA) | payer OTHER, SELFPAY | PROVIDERS: PCP Family Medicine; Visit Provider Psychiatry & Neurology Psychiatry | DX: Z79.899 Other long term (current) drug therapy (principal) | CPT/HCPCS: 80061; 83036 ==

== ENCOUNTER → 2024-08-08 13:57 | Outpatient (BNVA) | payer MEDICAID, SELFPAY ==
[2023-11-25 11:45] VITALS: BP 161/92; BMI 19.7
== END ==
PROVIDERS: PCP Family Medicine; Visit Provider Physician Assistant
DX: G56.03 Carpal tunnel syndrome, bilateral upper limbs (principal)
CPT/HCPCS: 99213

== ENCOUNTER → 2024-08-09 15:04 | Outpatient (BNVA) | payer MEDICAID, SELFPAY ==
[2023-11-25 11:45] VITALS: BP 161/92; BMI 19.7
== END ==
PROVIDERS: PCP Family Medicine; Visit Provider Podiatrist Foot & Ankle Surgery
DX: M79.671 Pain in right foot (principal); M79.672 Pain in left foot; M72.2 Plantar fascial fibromatosis; M24.572 Contracture, left ankle; M24.571 Contracture, right ankle
CPT/HCPCS: 73630; 99213

== ENCOUNTER → 2024-08-16 14:08 | Outpatient (BNVA) | payer MEDICAID, SELFPAY ==
[2023-11-25 11:45] VITALS: BP 161/92; BMI 19.7
== END ==
PROVIDERS: PCP Family Medicine; Visit Provider Physician Assistant
DX: M25.561 Pain in right knee (principal); M25.562 Pain in left knee; M17.0 Bilateral primary osteoarthritis of knee
CPT/HCPCS: 73560; 73565; 99213

== ENCOUNTER → 2024-09-06 13:32 | Outpatient (BNVA) | payer MEDICAID, SELFPAY ==
[2023-11-25 11:45] VITALS: BP 161/92; BMI 19.7
== END ==
PROVIDERS: PCP Family Medicine; Visit Provider Physician Assistant
DX: M25.511 Pain in right shoulder (principal); M25.512 Pain in left shoulder; M72.2 Plantar fascial fibromatosis; M24.572 Contracture, left ankle; M24.571 Contracture, right ankle
CPT/HCPCS: 73030; 99213

== ENCOUNTER → 2024-10-26 16:11 | Outpatient (BNVA) | payer MEDICAID, SELFPAY ==
[2024-10-26 10:41] VITALS: BP 161/92; BMI 19.7
== END ==
PROVIDERS: PCP Family Medicine; Visit Provider Specialist
DX: G56.03 Carpal tunnel syndrome, bilateral upper limbs (principal)
CPT/HCPCS: 95911

== ENCOUNTER → 2024-10-31 14:29 | Outpatient (BNVA) | payer MEDICAID, SELFPAY ==
[2024-10-26 10:41] VITALS: BP 161/92; BMI 19.7
== END ==
PROVIDERS: PCP Family Medicine; Visit Provider Student in an Organized Health Care Education/Training Program
DX: M25.551 Pain in right hip (principal); M25.552 Pain in left hip; M54.50 Low back pain, unspecified
CPT/HCPCS: 73523; 99213

== ENCOUNTER → 2024-11-15 15:10 | Outpatient (BNVA) | payer MEDICAID, SELFPAY ==
[2024-10-26 10:41] VITALS: BP 161/92; BMI 19.7
== END ==
PROVIDERS: PCP Family Medicine; Visit Provider Podiatrist Foot & Ankle Surgery
DX: M72.2 Plantar fascial fibromatosis (principal); M24.572 Contracture, left ankle; M24.571 Contracture, right ankle
CPT/HCPCS: 99214

== ENCOUNTER → 2024-11-21 16:40 | Outpatient (BNVA) | payer MEDICAID, SELFPAY ==
[2024-10-26 10:41] VITALS: BP 161/92; BMI 19.7
== END ==
PROVIDERS: PCP Family Medicine; Visit Provider Student in an Organized Health Care Education/Training Program
DX: M06.4 Inflammatory polyarthropathy (principal)
CPT/HCPCS: 36415; 80053; 84550; 85025; 85651; 86140; 86200; 86225; 86235; 86431

== ENCOUNTER → 2024-12-07 14:14 | Outpatient (BNVA) | payer OTHER, SELFPAY ==
[2024-10-26 10:41] VITALS: BP 161/92; BMI 19.7
== END ==
PROVIDERS: PCP Family Medicine; Visit Provider Psychiatry & Neurology Psychiatry
DX: F33.2 Major depressive disorder, recurrent severe without psychotic features (principal)
CPT/HCPCS: 80061; 83036

== ENCOUNTER → 2024-12-13 14:57 | Outpatient (BNVA) | payer MEDICAID, SELFPAY ==
[2024-12-11 10:42] VITALS: BP 117/72; BMI 18.6
== END ==
PROVIDERS: PCP Family Medicine; Visit Provider Student in an Organized Health Care Education/Training Program
DX: M25.541 Pain in joints of right hand (principal); M25.542 Pain in joints of left hand; M25.561 Pain in right knee; M25.562 Pain in left knee
CPT/HCPCS: 99213

== ENCOUNTER → 2024-12-21 10:49 | Outpatient (BNVA) | payer MEDICAID, SELFPAY ==
[2024-12-11 10:42] VITALS: BP 117/72; BMI 18.6
== END ==
PROVIDERS: PCP Family Medicine; Visit Provider Internal Medicine Rheumatology
DX: I10 Essential (primary) hypertension (principal); M79.7 Fibromyalgia; Z79.899 Other long term (current) drug therapy; M06.041 Rheumatoid arthritis without rheumatoid factor, right hand; M06.042 Rheumatoid arthritis without rheumatoid factor, left hand; Z71.85 Encounter for immunization safety counseling
CPT/HCPCS: 36415; 80076; 82565; 85025; 85651; 86140; 99214

== ENCOUNTER → 2024-12-28 15:06 | Outpatient (BNVA) | payer MEDICAID, SELFPAY ==
[2024-12-11 10:42] VITALS: BP 117/72; BMI 18.6
== END ==
PROVIDERS: PCP Family Medicine; Visit Provider Orthopaedic Surgery
DX: M54.2 Cervicalgia (principal); M54.50 Low back pain, unspecified
CPT/HCPCS: 72050; 72110; 99024; 99203